=== PATIENT | male | born 1940 | race African-American/Black ===

== ENCOUNTER 2017-10-10 10:00 | Inpatient (IN) ==
[2017-10-10] MEDS ORDERED: SODIUM CHLORIDE 0.9% 1,000 ML IV STA (11:13)
[2017-10-10 13:26] LABS: Basophils % 0.9 % (0.0-0.8); Eosinophils # 0.5 10*3/uL (0.0-0.87); Eosinophils % 14.9 % (0.00-10.9); Hematocrit 44.3 VOL% (42.0-52.0); Hemoglobin 13.7 GM/DL (14.0-18.0); Immature Granulocytes % 0.9 %; Immature Granulocytes Absolute 0.03 #; Lymphocytes % 32.3 % (21.2-54.2); Mean Corpuscular HGB Conc 30.9 GM/DL (32-36); Mean Corpuscular Hemoglobin 26 PG (27-34); Mean Platelet Volume 11.9 FL (9.6-12.0); Monocytes # 0.5 10*3/uL (0.11-0.8); Monocytes % 17.1 % (1.7-12.7); Neutrophils # 1.1 10*3/uL (1.4-7.4); Neutrophils % 33.9 % (38.7-73.9); Platelet Count 99 T/CUMM (130-400); Red Blood Count 5.21 MC/CUMM (3.8-5.5); Red Cell Distribution Width 14.8 % (9.3-17.3); White Blood Count 3.2 T/CUMM (4-12)
[2017-10-10 13:52] LABS: Albumin 3.4 G/DL (3.4-5.0); Bilirubin,Total 0.4 MG/DL (0.2-1.0); Calcium 8.3 MG/DL (8.5-10.1); Osmolality,Calculated 280.3 MOS/KG (273-304); Potassium 4.3 MMOL/L (3.5-5.1); Total Protein 7.1 G/DL (6.4-8.3)
[2017-10-10] MEDS ORDERED: LORazepam 2 MG/1 ML VIAL IV PRN (15:11)
[2017-10-10] MEDS ORDERED: MECLIZINE 25 MG TABLET PO PRN (15:11)
[2017-10-10] MEDS ORDERED: ONDANSETRON 4 MG/2 ML VIAL IV PRN (15:11)
[2017-10-10] MEDS: SODIUM CHLORIDE 0.9% 1,000 ML IV SCH (15:23)
[2017-10-10 15:32] LABS: Band Neutrophils 1 % (0-10); Eosinophils 10 % (0-10); Lymphocytes 33 % (20-55); Metamyelocytes 1 %; Segmented Neutrophils 49 % (50-85); Total Cells Counted 100
[2017-10-10 15:33] LABS: Platelet Estimate Decreased
[2017-10-10] MEDS: LEVOFLOXACIN INJ 500 MG in PREMIX 1 EACH IV SCH (18:40)
[2017-10-10] MEDS: methylPREDNISolone SOD SUC 125 MG/2 ML VIAL IV SCH ×2 (18:40→23:50)
[2017-10-10] MEDS: DOCUSATE SODIUM 100 MG CAPSULE PO SCH (21:00)
[2017-10-11] MEDS: SODIUM CHLORIDE 0.9% 1,000 ML IV SCH (00:32)
[2017-10-11] MEDS: methylPREDNISolone SOD SUC 125 MG/2 ML VIAL IV SCH ×3 (06:09→17:12)
[2017-10-11] MEDS: POTASSIUM CITRATE 10 MEQ TABLET PO SCH ×2 (08:34→21:10)
[2017-10-11] MEDS: CARVEDILOL 3.125 MG TABLET PO SCH ×2 (08:34→17:12)
[2017-10-11] MEDS: CHLORTHALIDONE 25 MG TABLET PO SCH (08:35)
[2017-10-11] MEDS: ASPIRIN EC 81 MG TABLET PO SCH ×2 (08:35→21:11)
[2017-10-11] MEDS: PANTOPRAZOLE 40 MG TABLET PO SCH ×2 (08:35→21:11)
[2017-10-11] MEDS ORDERED: PANTOPRAZOLE 40 MG TABLET PO SCH (09:00)
[2017-10-11] MEDS: BRIMONIDINE/TIMOLOL OPH SOLN 5 ML BOTTLE BOTH EYES SCH ×2 (11:26→21:13)
[2017-10-11] MEDS: DOCUSATE SODIUM 100 MG CAPSULE PO SCH ×2 (11:26→21:11)
[2017-10-11] MEDS: ACETAMINOPHEN 325 MG TABLET PO PRN (21:10)
[2017-10-11] MEDS: LEVOFLOXACIN INJ 500 MG in PREMIX 1 EACH IV SCH (21:11)
[2017-10-12] MEDS: methylPREDNISolone SOD SUC 125 MG/2 ML VIAL IV SCH ×5 (00:34→23:34)
[2017-10-12 08:16] LABS: Basophils % 0.1 % (0.0-0.8); Hematocrit 46.5 VOL% (42.0-52.0); Hemoglobin 14.9 GM/DL (14.0-18.0); Immature Granulocytes % 0.6 %; Immature Granulocytes Absolute 0.05 #; Lymphocytes # 0.6 10*3/uL (1.4-4.0); Lymphocytes % 7.7 % (21.2-54.2); Mean Corpuscular Hemoglobin 26 PG (27-34); Mean Platelet Volume 11.6 FL (9.6-12.0); Monocytes # 0.3 10*3/uL (0.11-0.8); Monocytes % 4.1 % (1.7-12.7); Neutrophils # 6.8 10*3/uL (1.4-7.4); Neutrophils % 87.5 % (38.7-73.9); Platelet Count 118 T/CUMM (130-400); Red Blood Count 5.74 MC/CUMM (3.8-5.5); Red Cell Distribution Width 14.4 % (9.3-17.3); White Blood Count 7.8 T/CUMM (4-12)
[2017-10-12] MEDS: PANTOPRAZOLE 40 MG TABLET PO SCH ×2 (09:09→20:23)
[2017-10-12] MEDS: ASPIRIN EC 81 MG TABLET PO SCH ×2 (09:09→20:23)
[2017-10-12] MEDS: CARVEDILOL 3.125 MG TABLET PO SCH ×2 (09:09→16:51)
[2017-10-12] MEDS: CHLORTHALIDONE 25 MG TABLET PO SCH (09:09)
[2017-10-12] MEDS: DOCUSATE SODIUM 100 MG CAPSULE PO SCH ×2 (09:09→20:22)
[2017-10-12] MEDS: POTASSIUM CITRATE 10 MEQ TABLET PO SCH ×2 (09:09→20:23)
[2017-10-12] MEDS: BRIMONIDINE/TIMOLOL OPH SOLN 5 ML BOTTLE BOTH EYES SCH ×2 (09:10→20:23)
[2017-10-12] MEDS ORDERED: PHENOL 1.4% THROAT SPRAY 177 ML BOTTLE PO PRN (12:56)
[2017-10-12] MEDS: LEVOFLOXACIN INJ 500 MG in PREMIX 1 EACH IV SCH (20:26)
[2017-10-13] MEDS: methylPREDNISolone SOD SUC 125 MG/2 ML VIAL IV SCH ×3 (05:42→17:56)
[2017-10-13] MEDS: DOCUSATE SODIUM 100 MG CAPSULE PO SCH ×2 (08:26→20:41)
[2017-10-13] MEDS: ASPIRIN EC 81 MG TABLET PO SCH ×2 (08:26→20:41)
[2017-10-13] MEDS: CARVEDILOL 3.125 MG TABLET PO SCH ×2 (08:26→17:56)
[2017-10-13] MEDS: PANTOPRAZOLE 40 MG TABLET PO SCH ×2 (08:26→20:41)
[2017-10-13] MEDS: CHLORTHALIDONE 25 MG TABLET PO SCH (08:26)
[2017-10-13] MEDS: BRIMONIDINE/TIMOLOL OPH SOLN 5 ML BOTTLE BOTH EYES SCH ×2 (08:26→20:40)
[2017-10-13] MEDS: POTASSIUM CITRATE 10 MEQ TABLET PO SCH ×2 (08:26→20:41)
[2017-10-13] MEDS: ACETAMINOPHEN 325 MG TABLET PO PRN (10:11)
[2017-10-13] MEDS: LEVOFLOXACIN INJ 500 MG in PREMIX 1 EACH IV SCH (21:38)
[2017-10-14] MEDS: methylPREDNISolone SOD SUC 125 MG/2 ML VIAL IV SCH ×2 (00:26→06:02)
[2017-10-14 08:15] VITALS: BP 154/77
== END 2017-10-14 10:59 | disposition home health service (06) | DRG 153 ==
LOC: N.EDINP 10:00 → N.ED 10:00 → N.EDINP 14:58 → N.2E 15:09
PROVIDERS: ADMIT Family Medicine; ATTEND Family Medicine

== ENCOUNTER 2018-02-01 10:52 | Observation (INO) ==
[2018-02-01] MEDS ORDERED: ASPIRIN 325 MG TABLET PO STA (11:29)
[2018-02-01] MEDS ORDERED: FUROSEMIDE 40 MG/4 ML VIAL IV STA (11:34)
[2018-02-01] MEDS ORDERED: ALBUTEROL/IPRATROPIUM 3 ML NEB RESP TX STA (11:34)
[2018-02-01] MEDS ORDERED: ONDANSETRON 4 MG/2 ML VIAL IV STA (11:34)
[2018-02-01] MEDS ORDERED: methylPREDNISolone SOD SUC 125 MG/2 ML VIAL IV STA (11:34)
[2018-02-01] MEDS ORDERED: MORPHINE 4 MG/1 ML VIAL IV STA (11:34)
[2018-02-01] MEDS ORDERED: NITROGLYCERIN 2% OINT 1 INCH/GM PACK TOP STA (11:34)
[2018-02-01 12:01] LABS: Basophils # 0.1 10*3/uL (0.0-0.2); Eosinophils # 0.4 10*3/uL (0.0-0.87); Eosinophils % 5.5 % (0.00-10.9); Hemoglobin 14.3 GM/DL (14.0-18.0); Immature Granulocytes % 0.6 %; Immature Granulocytes Absolute 0.04 #; Lymphocytes # 1.4 10*3/uL (1.4-4.0); Lymphocytes % 19.6 % (21.2-54.2); Mean Corpuscular HGB Conc 31.1 GM/DL (32-36); Mean Corpuscular Hemoglobin 26 PG (27-34); Mean Corpuscular Volume 83.3 FL (87-102); Mean Platelet Volume 10.3 FL (9.6-12.0); Monocytes # 0.9 10*3/uL (0.11-0.8); Monocytes % 12.3 % (1.7-12.7); Neutrophils # 4.4 10*3/uL (1.4-7.4); Platelet Count 122 T/CUMM (130-400); Red Blood Count 5.52 MC/CUMM (3.8-5.5); Red Cell Distribution Width 14.5 % (9.3-17.3); White Blood Count 7.1 T/CUMM (4-12)
[2018-02-01 12:18] LABS: PT Patient Result 10.1 SECS
[2018-02-01 12:20] LABS: Albumin 3.7 G/DL (3.4-5.0); Bilirubin,Total 0.5 MG/DL (0.2-1.0); Calcium 9.1 MG/DL (8.5-10.1); Osmolality,Calculated 278.4 MOS/KG (273-304); Potassium 2.9 MMOL/L (3.5-5.1); Total Protein 7.5 G/DL (6.4-8.3)
[2018-02-01] MEDS ORDERED: POTASSIUM CHLORIDE 20 MEQ TABLET PO STA (12:37)
[2018-02-01 13:15] LABS: Apearance,Urine CLEAR (Clear); Bilirubin,Urine Negative (Negative); Blood, Urine Negative (Negative); Glucose,Urine (UA) Negative (Negative); Ketones,Urine Negative (Negative); Mucus,Urine Occasional /LPF (Occasional); Nitrite,Urine Negative (Negative); Protein,Urine Negative; RBC,Urine 2 /HPF (0-4); Squamous Epithelial Cell,Urine Occasional /HPF (0-10); Urine Color Yellow (Yellow); Urine Specific Gravity 1.011 (1.001-1.035); WBC,Urine 27 /HPF (0-6)
[2018-02-01] MEDS ORDERED: cefTRIAXone 1,000 MG in SODIUM CHLORIDE 0.9% 100 ML IV STA (13:35)
[2018-02-01] MEDS ORDERED: ALBUTEROL/IPRATROPIUM 3 ML NEB RESP TX PRN (17:28)
[2018-02-01] MEDS ORDERED: ONDANSETRON 4 MG/2 ML VIAL IV PRN (17:28)
[2018-02-01] MEDS ORDERED: MORPHINE 4 MG/1 ML VIAL IV PRN (17:28)
[2018-02-01] MEDS ORDERED: ACETAMINOPHEN 325 MG TABLET PO PRN (17:28)
[2018-02-01] MEDS ORDERED: MECLIZINE 25 MG TABLET PO PRN (17:28)
[2018-02-01] MEDS: SODIUM CHLORIDE 0.9% 1,000 ML IV SCH (18:08)
[2018-02-01] MEDS: ENOXAPARIN 40 MG/0.4 ML SYRINGE SUBCUT SCH (18:09)
[2018-02-01] MEDS: NITROGLYCERIN 2% OINT 1 INCH/GM PACK TOP SCH ×2 (18:09→23:35)
[2018-02-01] MEDS ORDERED: NON-FORMULARY MEDICATION (Omeprazole [Prilosec] 20 MG) PO SCH (21:00)
[2018-02-01] MEDS: ASPIRIN EC 81 MG TABLET PO SCH (21:38)
[2018-02-01] MEDS: DOCUSATE SODIUM 100 MG CAPSULE PO SCH (21:38)
[2018-02-01] MEDS: CARVEDILOL 3.125 MG TABLET PO SCH (21:39)
[2018-02-01] MEDS: LATANOPROST 0.005% OPH SOLN 2.5 ML BOTTLE BOTH EYES SCH (21:40)
[2018-02-01] MEDS: POTASSIUM CITRATE 10 MEQ TABLET PO SCH (22:42)
[2018-02-02 05:25] LABS: Basophils % 0.2 % (0.0-0.8); Hematocrit 43.1 VOL% (42.0-52.0); Hemoglobin 13.5 GM/DL (14.0-18.0); Immature Granulocytes % 0.9 %; Immature Granulocytes Absolute 0.06 #; Lymphocytes # 0.6 10*3/uL (1.4-4.0); Lymphocytes % 9.2 % (21.2-54.2); Mean Corpuscular HGB Conc 31.3 GM/DL (32-36); Mean Corpuscular Hemoglobin 26 PG (27-34); Monocytes # 0.4 10*3/uL (0.11-0.8); Monocytes % 5.8 % (1.7-12.7); Neutrophils # 5.5 10*3/uL (1.4-7.4); Neutrophils % 83.9 % (38.7-73.9); Platelet Count 115 T/CUMM (130-400); Red Blood Count 5.13 MC/CUMM (3.8-5.5); Red Cell Distribution Width 14.2 % (9.3-17.3); White Blood Count 6.5 T/CUMM (4-12)
[2018-02-02 05:51] LABS: Eosinophils 5 % (0-10); Lymphocytes 9 % (20-55); Segmented Neutrophils 83 % (50-85); Total Cells Counted 100
[2018-02-02 05:53] LABS: Hypochromasia Slight; Spherocytes Slight
[2018-02-02 05:54] LABS: Elliptocytes Few
[2018-02-02 05:56] LABS: Platelet Estimate Decreased
[2018-02-02 08:09] LABS: Alanine Aminotransferase 14 U/L (16-61); Albumin 3.2 G/DL (3.4-5.0); Alkaline Phosphatase 73 U/L (45-117); Aspartate Amino Transferase 12 U/L (0-37); Bilirubin,Total < 0.39 MG/DL (0.2-1.0); Blood Urea Nitrogen 25 MG/DL (7-18); Calcium 8.4 MG/DL (8.5-10.1); Cholesterol 159 MG/DL (50-200); Glucose 186 MG/DL (74-106); HDL Cholesterol 68 MG/DL (40-60); Osmolality,Calculated 283.7 MOS/KG (273-304); Potassium 3.6 MMOL/L (3.5-5.1); Risk Ratio 2.34; Sodium 138 MMOL/L (136-145); Total Protein 6.7 G/DL (6.4-8.3); Triglycerides 122 MG/DL (2-150); VLDL CHOLESTEROL 24.4 MG/DL
[2018-02-02] MEDS: TAMSULOSIN 0.4 MG CAPSULE PO SCH (09:42)
[2018-02-02] MEDS: CHLORTHALIDONE 25 MG TABLET PO SCH (09:42)
[2018-02-02] MEDS: NITROGLYCERIN 2% OINT 1 INCH/GM PACK TOP SCH ×3 (09:43→18:37)
[2018-02-02] MEDS: ASPIRIN EC 81 MG TABLET PO SCH ×2 (09:43→22:13)
[2018-02-02] MEDS: cefTRIAXone 1,000 MG in SYRINGE 1 EACH IV SCH (09:43)
[2018-02-02] MEDS: DOCUSATE SODIUM 100 MG CAPSULE PO SCH ×2 (09:43→22:13)
[2018-02-02] MEDS: ROSUVASTATIN 20 MG TABLET PO SCH (09:43)
[2018-02-02] MEDS: PANTOPRAZOLE 40 MG TABLET PO SCH (09:43)
[2018-02-02] MEDS: CARVEDILOL 3.125 MG TABLET PO SCH ×2 (09:43→22:12)
[2018-02-02] MEDS: BRIMONIDINE/TIMOLOL OPH SOLN 5 ML BOTTLE BOTH EYES SCH ×2 (09:43→22:13)
[2018-02-02] MEDS: SODIUM CHLORIDE 0.9% 1,000 ML IV SCH (09:44)
[2018-02-02] MEDS: POTASSIUM CITRATE 10 MEQ TABLET PO SCH ×2 (09:49→22:12)
[2018-02-02] MEDS: ENOXAPARIN 40 MG/0.4 ML SYRINGE SUBCUT SCH (18:36)
[2018-02-02] MEDS: LATANOPROST 0.005% OPH SOLN 2.5 ML BOTTLE BOTH EYES SCH (22:12)
[2018-02-03] MEDS: SODIUM CHLORIDE 0.9% 1,000 ML IV SCH (00:21)
[2018-02-03] MEDS: NITROGLYCERIN 2% OINT 1 INCH/GM PACK TOP SCH ×3 (00:42→12:40)
[2018-02-03] MEDS: ROSUVASTATIN 20 MG TABLET PO SCH (09:27)
[2018-02-03] MEDS: CARVEDILOL 3.125 MG TABLET PO SCH (09:27)
[2018-02-03] MEDS: ASPIRIN EC 81 MG TABLET PO SCH (09:27)
[2018-02-03] MEDS: BRIMONIDINE/TIMOLOL OPH SOLN 5 ML BOTTLE BOTH EYES SCH (09:27)
[2018-02-03] MEDS: TAMSULOSIN 0.4 MG CAPSULE PO SCH (09:28)
[2018-02-03] MEDS: CHLORTHALIDONE 25 MG TABLET PO SCH (09:28)
[2018-02-03] MEDS: PANTOPRAZOLE 40 MG TABLET PO SCH (09:28)
[2018-02-03] MEDS: POTASSIUM CITRATE 10 MEQ TABLET PO SCH (09:32)
[2018-02-03] MEDS: DOCUSATE SODIUM 100 MG CAPSULE PO SCH (09:35)
[2018-02-03] MEDS: cefTRIAXone 1,000 MG in SYRINGE 1 EACH IV SCH (09:35)
[2018-02-03 12:02] VITALS: BP 140/70
== END 2018-02-03 15:17 | disposition home or self-care (01) ==
LOC: N.EDINP 10:52 → N.ED 10:52 → N.TELES 16:35
PROVIDERS: ADMIT Family Medicine; ATTEND Family Medicine

== ENCOUNTER 2019-08-25 11:17 | Inpatient (IN) ==
[2019-08-25 13:01] LABS: Basophils % 0.8 % (0.0-0.8); Eosinophils % 0.8 % (0.00-10.9); Hematocrit 51.9 VOL% (42.0-52.0); Immature Granulocytes % 1.3 %; Immature Granulocytes Absolute 0.05 #; Mean Corpuscular HGB Conc 30.8 GM/DL (32-36); Mean Corpuscular Volume 85.8 FL (87-102); Mean Platelet Volume 11.9 FL (9.6-12.0); Monocytes % 16.8 % (1.7-12.7); Neutrophils % 55.3 % (38.7-73.9); Red Blood Count 6.05 MC/CUMM (3.8-5.5); Red Cell Distribution Width 15.3 % (9.3-17.3); White Blood Count 3.9 T/CUMM (4-12)
[2019-08-25 13:03] LABS: Platelet Count 76 T/CUMM (130-400)
[2019-08-25 13:17] LABS: PT Patient Result 10.8 SECS (9.6-12.2)
[2019-08-25 13:22] LABS: Eosinophils 1 % (0-10); Lymphocytes 19 % (20-55); Microcytosis Slight; Polychromasia Few; Segmented Neutrophils 57 % (50-85); Stomatocytes 1+; Total Cells Counted 100
[2019-08-25 13:31] LABS: Blood Urea Nitrogen 17 MG/DL (7-18); Calcium 9.1 MG/DL (8.5-10.1); Estimated Glom Filtration Rate 53 ML/MIN; Glucose 101 MG/DL (74-106); Osmolality,Calculated 278.5 MOS/KG (273-304); Troponin I < 0.015 NG/ML (0.00-0.045)
[2019-08-25] MEDS ORDERED: ONDANSETRON 4 MG/2 ML VIAL IV PRN (17:19)
[2019-08-25] MEDS: SODIUM CHLORIDE 0.9% 1,000 ML IV SCH (17:53)
[2019-08-25] MEDS: carvediloL 3.125 MG TABLET PO SCH (20:27)
[2019-08-25] MEDS: POTASSIUM CITRATE 10 MEQ TABLET PO SCH (20:27)
[2019-08-25] MEDS: TAMSULOSIN 0.4 MG CAPSULE PO SCH (20:27)
[2019-08-25] MEDS: DOCUSATE SODIUM 100 MG CAPSULE PO SCH (20:27)
[2019-08-25] MEDS: LATANOPROST 0.005% OPH SOLN 2.5 ML BOTTLE BOTH EYES SCH (20:28)
[2019-08-25] MEDS: FLUTICASONE 50 MCG NASAL SPRAY 16 GM BOTTLE BOTH NARES SCH (20:28)
[2019-08-25] MEDS: BRIMONIDINE/TIMOLOL OPH SOLN 5 ML BOTTLE BOTH EYES SCH (20:28)
[2019-08-25] MEDS: IPRATROPIUM 0.06% NASAL SPRAY 15 ML BOTTLE BOTH NARES SCH (20:28)
[2019-08-26] MEDS: ACETAMINOPHEN 325 MG TABLET PO PRN ×4 (00:22→23:49)
[2019-08-26] MEDS: SODIUM CHLORIDE 0.9% 1,000 ML IV SCH ×3 (02:03→18:53)
[2019-08-26 06:09] LABS: Basophils % 0.4 % (0.0-0.8); Eosinophils % 0.2 % (0.00-10.9); Hematocrit 48.2 VOL% (42.0-52.0); Immature Granulocytes % 0.4 %; Immature Granulocytes Absolute 0.02 #; Lymphocytes # 1.2 10*3/uL (1.4-4.0); Mean Corpuscular HGB Conc 31.1 GM/DL (32-36); Mean Corpuscular Volume 85.3 FL (87-102); Mean Platelet Volume 11.6 FL (9.6-12.0); Monocytes % 14.4 % (1.7-12.7); Neutrophils % 61.6 % (38.7-73.9); Platelet Count 62 T/CUMM (130-400); Red Blood Count 5.65 MC/CUMM (3.8-5.5); Red Cell Distribution Width 14.9 % (9.3-17.3); White Blood Count 5.3 T/CUMM (4-12)
[2019-08-26 06:40] LABS: Calcium 8.3 MG/DL (8.5-10.1); Osmolality,Calculated 279.5 MOS/KG (273-304)
[2019-08-26 06:57] LABS: Hypochromasia Slight; Platelet Estimate Decreased
[2019-08-26] MEDS: TAMSULOSIN 0.4 MG CAPSULE PO SCH ×2 (08:16→21:05)
[2019-08-26] MEDS: ASPIRIN EC 81 MG TABLET PO SCH (08:16)
[2019-08-26] MEDS: carvediloL 3.125 MG TABLET PO SCH ×2 (08:16→21:05)
[2019-08-26] MEDS: DOCUSATE SODIUM 100 MG CAPSULE PO SCH ×2 (08:16→21:05)
[2019-08-26] MEDS: BRIMONIDINE/TIMOLOL OPH SOLN 5 ML BOTTLE BOTH EYES SCH ×2 (08:17→21:05)
[2019-08-26] MEDS: POTASSIUM CITRATE 10 MEQ TABLET PO SCH ×2 (08:17→21:05)
[2019-08-26] MEDS ORDERED: SODIUM CHLORIDE 0.9% 500 ML IV ONE (09:34)
[2019-08-26] MEDS: POTASSIUM CHLORIDE 20 MEQ TABLET PO PRN ×2 (10:15→14:21)
[2019-08-26] MEDS: cefTRIAXone 1,000 MG in SYRINGE 1 EACH IV SCH (10:52)
[2019-08-26] MEDS: FLUTICASONE 50 MCG NASAL SPRAY 16 GM BOTTLE BOTH NARES SCH (21:04)
[2019-08-26] MEDS: IPRATROPIUM 0.06% NASAL SPRAY 15 ML BOTTLE BOTH NARES SCH (21:04)
[2019-08-26] MEDS: LATANOPROST 0.005% OPH SOLN 2.5 ML BOTTLE BOTH EYES SCH (21:05)
[2019-08-27] MEDS: SODIUM CHLORIDE 0.9% 1,000 ML IV SCH ×3 (03:16→19:26)
[2019-08-27 08:41] LABS: Basophils % 0.3 % (0.0-0.8); Eosinophils % 0.3 % (0.00-10.9); Hematocrit 44.1 VOL% (42.0-52.0); Hemoglobin 13.4 GM/DL (14.0-18.0); Immature Granulocytes % 0.6 %; Immature Granulocytes Absolute 0.02 #; Lymphocytes # 1.1 10*3/uL (1.4-4.0); Lymphocytes % 29.2 % (21.2-54.2); Mean Corpuscular HGB Conc 30.4 GM/DL (32-36); Mean Corpuscular Volume 86.8 FL (87-102); Mean Platelet Volume 11.9 FL (9.6-12.0); Monocytes % 12.3 % (1.7-12.7); Neutrophils % 57.3 % (38.7-73.9); Red Blood Count 5.08 MC/CUMM (3.8-5.5); Red Cell Distribution Width 15.2 % (9.3-17.3)
[2019-08-27 08:42] LABS: Platelet Count 48 T/CUMM (130-400); White Blood Count 3.6 T/CUMM (4-12)
[2019-08-27 08:44] LABS: Hypochromasia 1+
[2019-08-27 08:45] LABS: Microcytosis 1+
[2019-08-27 08:47] LABS: Ovalocytes Few; Platelet Estimate Decreased
[2019-08-27 08:51] LABS: Calcium 7.6 MG/DL (8.5-10.1); Osmolality,Calculated 289.7 MOS/KG (273-304)
[2019-08-27 08:51] LABS: Troponin I 0.035 NG/ML (0.00-0.045)
[2019-08-27] MEDS: BRIMONIDINE/TIMOLOL OPH SOLN 5 ML BOTTLE BOTH EYES SCH ×2 (10:35→21:17)
[2019-08-27] MEDS: ASPIRIN EC 81 MG TABLET PO SCH (10:35)
[2019-08-27] MEDS: TAMSULOSIN 0.4 MG CAPSULE PO SCH ×2 (10:35→21:17)
[2019-08-27] MEDS: carvediloL 3.125 MG TABLET PO SCH ×2 (10:35→21:17)
[2019-08-27] MEDS: cefTRIAXone 1,000 MG in SYRINGE 1 EACH IV SCH (10:35)
[2019-08-27] MEDS: DOCUSATE SODIUM 100 MG CAPSULE PO SCH ×2 (10:35→21:17)
[2019-08-27] MEDS: POTASSIUM CITRATE 10 MEQ TABLET PO SCH ×2 (10:36→21:17)
[2019-08-27 14:26] LABS: Troponin I 0.023 NG/ML (0.00-0.045)
[2019-08-27] MEDS ORDERED: POTASSIUM CHLORIDE 20 MEQ TABLET PO ONE (16:12)
[2019-08-27 19:06] LABS: Apearance,Urine CLOUDY (Clear); Bilirubin,Urine Negative (Negative); Blood, Urine Moderate mg/dL (Negative); Glucose,Urine (UA) Negative (Negative); Ketones,Urine Negative (Negative); Mucus,Urine Occasional /LPF (Occasional); Nitrite,Urine Negative (Negative); Protein,Urine 30 MG/DL; RBC,Urine 4 /HPF (0-4); Squamous Epithelial Cell,Urine Occasional /HPF (0-10); Urine Color Yellow (Yellow); Urine Specific Gravity 1.015 (1.001-1.035); Urine Urobilinogen < 2.0 EU/DL (0.2-1.0); WBC,Urine 241 /HPF (0-6)
[2019-08-27] MEDS: LATANOPROST 0.005% OPH SOLN 2.5 ML BOTTLE BOTH EYES SCH (21:17)
[2019-08-27] MEDS: FLUTICASONE 50 MCG NASAL SPRAY 16 GM BOTTLE BOTH NARES SCH (21:18)
[2019-08-27] MEDS: IPRATROPIUM 0.06% NASAL SPRAY 15 ML BOTTLE BOTH NARES SCH (21:18)
[2019-08-28] MEDS: SODIUM CHLORIDE 0.9% 1,000 ML IV SCH ×3 (03:39→19:56)
[2019-08-28 05:31] LABS: Basophils % 0.4 % (0.0-0.8); Eosinophils % 1.5 % (0.00-10.9); Hematocrit 40.5 VOL% (42.0-52.0); Hemoglobin 12.4 GM/DL (14.0-18.0); Immature Granulocytes % 0.7 %; Immature Granulocytes Absolute 0.02 #; Lymphocytes # 1.3 10*3/uL (1.4-4.0); Lymphocytes % 47.8 % (21.2-54.2); Mean Corpuscular HGB Conc 30.6 GM/DL (32-36); Mean Corpuscular Volume 85.8 FL (87-102); Mean Platelet Volume 13.4 FL (9.6-12.0); Monocytes % 14.4 % (1.7-12.7); Neutrophils % 35.2 % (38.7-73.9); Red Blood Count 4.72 MC/CUMM (3.8-5.5); White Blood Count 2.7 T/CUMM (4-12)
[2019-08-28 05:41] LABS: Platelet Count 41 T/CUMM (130-400)
[2019-08-28 05:42] LABS: Calcium 7.4 MG/DL (8.5-10.1); Osmolality,Calculated 283.1 MOS/KG (273-304)
[2019-08-28 05:59] LABS: Eosinophils 4 % (0-10); Hypochromasia 1+; Lymphocytes 47 % (20-55); Microcytosis 1+; Ovalocytes Slight; Platelet Estimate Decreased; Segmented Neutrophils 39 % (50-85); Total Cells Counted 100
[2019-08-28] MEDS: POTASSIUM CITRATE 10 MEQ TABLET PO SCH ×2 (09:00→20:49)
[2019-08-28] MEDS: carvediloL 3.125 MG TABLET PO SCH ×2 (09:01→20:49)
[2019-08-28] MEDS: TAMSULOSIN 0.4 MG CAPSULE PO SCH ×2 (09:01→20:49)
[2019-08-28] MEDS: ACETAMINOPHEN 325 MG TABLET PO PRN (09:01)
[2019-08-28] MEDS: cefTRIAXone 1,000 MG in SYRINGE 1 EACH IV SCH (09:02)
[2019-08-28] MEDS: BRIMONIDINE/TIMOLOL OPH SOLN 5 ML BOTTLE BOTH EYES SCH ×2 (09:02→20:49)
[2019-08-28] MEDS: DOCUSATE SODIUM 100 MG CAPSULE PO SCH ×2 (09:02→20:49)
[2019-08-28 14:41] LABS: Alanine Aminotransferase 34 U/L (16-61); Alkaline Phosphatase 60 U/L (45-117); Aspartate Amino Transferase 52 U/L (0-37); Bilirubin,Direct < 0.100 MG/DL (0.0-0.20); Bilirubin,Indirect 0.6 MG/DL (0.0-1.0); Ferritin 118.1 ng/ml (26-388); Immunoglobulin A 211 MG/DL (70-400); Immunoglobulin G 1080 MG/DL (700-1600); Immunoglobulin M 108 MG/DL (40-230); Iron 52 UG/DL (65-175); Rheumatoid Factor < 15 IU/ML (<15); Total Protein 6.6 G/DL (6.4-8.3)
[2019-08-28 14:52] LABS: Folate 18.2 NG/ML (5.4-24.0); Vitamin B12 353 PG/ML (211-911)
[2019-08-28] MEDS: FLUTICASONE 50 MCG NASAL SPRAY 16 GM BOTTLE BOTH NARES SCH (20:48)
[2019-08-28] MEDS: IPRATROPIUM 0.06% NASAL SPRAY 15 ML BOTTLE BOTH NARES SCH (20:48)
[2019-08-28] MEDS: LATANOPROST 0.005% OPH SOLN 2.5 ML BOTTLE BOTH EYES SCH (20:50)
[2019-08-29] MEDS: SODIUM CHLORIDE 0.9% 1,000 ML IV SCH ×3 (04:30→21:12)
[2019-08-29 06:01] LABS: Basophils % 0.5 % (0.0-0.8); Eosinophils # 0.1 10*3/uL (0.0-0.87); Eosinophils % 4.9 % (0.00-10.9); Hematocrit 42.7 VOL% (42.0-52.0); Hemoglobin 13.2 GM/DL (14.0-18.0); Immature Granulocytes % 0.5 %; Immature Granulocytes Absolute 0.01 #; Lymphocytes # 1.2 10*3/uL (1.4-4.0); Lymphocytes % 56.1 % (21.2-54.2); Mean Corpuscular HGB Conc 30.9 GM/DL (32-36); Mean Corpuscular Volume 85.9 FL (87-102); Mean Platelet Volume 11.2 FL (9.6-12.0); Monocytes % 9.3 % (1.7-12.7); Neutrophils % 28.7 % (38.7-73.9); Platelet Count 49 T/CUMM (130-400); Red Blood Count 4.97 MC/CUMM (3.8-5.5); Red Cell Distribution Width 15.1 % (9.3-17.3); White Blood Count 2.1 T/CUMM (4-12)
[2019-08-29 06:16] LABS: Calcium 7.6 MG/DL (8.5-10.1)
[2019-08-29 06:31] LABS: Eosinophils 4 % (0-10); Lymphocytes 53 % (20-55); Platelet Estimate Decreased; Polychromasia Few; Segmented Neutrophils 33 % (50-85); Total Cells Counted 100
[2019-08-29] MEDS: carvediloL 3.125 MG TABLET PO SCH ×2 (09:02→21:12)
[2019-08-29] MEDS: DOCUSATE SODIUM 100 MG CAPSULE PO SCH ×2 (09:02→21:12)
[2019-08-29] MEDS: BRIMONIDINE/TIMOLOL OPH SOLN 5 ML BOTTLE BOTH EYES SCH ×2 (09:02→21:12)
[2019-08-29] MEDS: TAMSULOSIN 0.4 MG CAPSULE PO SCH ×2 (09:02→21:12)
[2019-08-29] MEDS: cefTRIAXone 1,000 MG in SYRINGE 1 EACH IV SCH (09:02)
[2019-08-29] MEDS: POTASSIUM CITRATE 10 MEQ TABLET PO SCH ×2 (09:02→21:13)
[2019-08-29 10:00] LABS: Immunoglobulin A (Chem) 211 MG/DL (70-400); Immunoglobulin G (Chem) 1080 MG/DL (700-1600); Immunoglobulin M (Chem) 108 MG/DL (40-230); Total Protein (Chem) 6.6 G/DL (6.4-8.3)
[2019-08-29 11:35] LABS: Albumin (SPE) Rel % 60.2 %; Alpha 1 (SPE) 0.2 G/DL (0.1-0.4); Alpha 2 (SPE) 0.7 G/DL (0.4-1.0); Alpha 2 (SPE) Rel % 11.2 %; Beta (SPE) 0.7 G/DL (0.5-1.1); Beta (SPE) Rel % 10.3 %; Gamma (SPE) Rel % 15.3 %
[2019-08-29 14:06] LABS: Basophils % 0.4 % (0.0-0.8); Eosinophils # 0.1 10*3/uL (0.0-0.87); Eosinophils % 3.6 % (0.00-10.9); Hematocrit 42.3 VOL% (42.0-52.0); Hemoglobin 13.1 GM/DL (14.0-18.0); Immature Granulocytes % 0.8 %; Immature Granulocytes Absolute 0.02 #; Lymphocytes # 1.3 10*3/uL (1.4-4.0); Lymphocytes % 50.6 % (21.2-54.2); Mean Corpuscular Volume 86.2 FL (87-102); Mean Platelet Volume 12.1 FL (9.6-12.0); Monocytes % 9.2 % (1.7-12.7); Neutrophils % 35.4 % (38.7-73.9); Platelet Count 66 T/CUMM (130-400); Red Blood Count 4.91 MC/CUMM (3.8-5.5); Red Cell Distribution Width 14.9 % (9.3-17.3); White Blood Count 2.5 T/CUMM (4-12)
[2019-08-29 14:37] LABS: Band Neutrophils 3 % (0-10); Eosinophils 3 % (0-10); Lymphocytes 50 % (20-55); Segmented Neutrophils 36 % (50-85); Total Cells Counted 100
[2019-08-29 14:38] LABS: Hypochromasia 1+; Microcytosis 1+; Platelet Estimate Decreased
[2019-08-29 14:39] LABS: Ovalocytes Few
[2019-08-29] MEDS: IPRATROPIUM 0.06% NASAL SPRAY 15 ML BOTTLE BOTH NARES SCH (21:12)
[2019-08-29] MEDS: FLUTICASONE 50 MCG NASAL SPRAY 16 GM BOTTLE BOTH NARES SCH (21:12)
[2019-08-29] MEDS: LATANOPROST 0.005% OPH SOLN 2.5 ML BOTTLE BOTH EYES SCH (21:12)
[2019-08-30 04:52] LABS: Basophils % 0.9 % (0.0-0.8); Eosinophils # 0.1 10*3/uL (0.0-0.87); Eosinophils % 3.8 % (0.00-10.9); Hematocrit 41.2 VOL% (42.0-52.0); Hemoglobin 12.7 GM/DL (14.0-18.0); Immature Granulocytes % 0.5 %; Immature Granulocytes Absolute 0.01 #; Lymphocytes # 1.1 10*3/uL (1.4-4.0); Lymphocytes % 52.8 % (21.2-54.2); Mean Corpuscular HGB Conc 30.8 GM/DL (32-36); Mean Corpuscular Volume 84.9 FL (87-102); Mean Platelet Volume 10.9 FL (9.6-12.0); Monocytes % 7.5 % (1.7-12.7); Neutrophils % 34.5 % (38.7-73.9); Platelet Count 57 T/CUMM (130-400); Red Blood Count 4.85 MC/CUMM (3.8-5.5); Red Cell Distribution Width 14.8 % (9.3-17.3); White Blood Count 2.1 T/CUMM (4-12)
[2019-08-30] MEDS: SODIUM CHLORIDE 0.9% 1,000 ML IV SCH ×2 (05:12→16:13)
[2019-08-30 05:17] LABS: Eosinophils 3 % (0-10); Hypochromasia Slight; Lymphocytes 52 % (20-55); Myelocytes 1 %; Platelet Estimate Decreased; Segmented Neutrophils 35 % (50-85); Total Cells Counted 100
[2019-08-30] MEDS ORDERED: HEPARIN 5,000 UNIT/1 ML VIAL ONE (07:58)
[2019-08-30] MEDS: TAMSULOSIN 0.4 MG CAPSULE PO SCH ×2 (10:31→21:00)
[2019-08-30] MEDS: carvediloL 3.125 MG TABLET PO SCH ×2 (10:31→20:59)
[2019-08-30] MEDS: DOCUSATE SODIUM 100 MG CAPSULE PO SCH ×2 (10:31→21:00)
[2019-08-30] MEDS: BRIMONIDINE/TIMOLOL OPH SOLN 5 ML BOTTLE BOTH EYES SCH ×2 (10:31→20:59)
[2019-08-30] MEDS: cefTRIAXone 1,000 MG in SYRINGE 1 EACH IV SCH (10:31)
[2019-08-30] MEDS: POTASSIUM CITRATE 10 MEQ TABLET PO SCH ×2 (10:31→21:00)
[2019-08-30] MEDS: LATANOPROST 0.005% OPH SOLN 2.5 ML BOTTLE BOTH EYES SCH (20:59)
[2019-08-30] MEDS: FLUTICASONE 50 MCG NASAL SPRAY 16 GM BOTTLE BOTH NARES SCH (21:01)
[2019-08-30] MEDS: IPRATROPIUM 0.06% NASAL SPRAY 15 ML BOTTLE BOTH NARES SCH (21:02)
[2019-08-31] MEDS: SODIUM CHLORIDE 0.9% 1,000 ML IV SCH (00:17)
[2019-08-31 06:25] LABS: Basophils % 0.3 % (0.0-0.8); Eosinophils # 0.1 10*3/uL (0.0-0.87); Eosinophils % 3.1 % (0.00-10.9); Hematocrit 40.2 VOL% (42.0-52.0); Hemoglobin 12.7 GM/DL (14.0-18.0); Immature Granulocytes Absolute 0.03 #; Lymphocytes # 1.2 10*3/uL (1.4-4.0); Lymphocytes % 41.1 % (21.2-54.2); Mean Corpuscular HGB Conc 31.6 GM/DL (32-36); Mean Corpuscular Volume 83.6 FL (87-102); Mean Platelet Volume 12.2 FL (9.6-12.0); Monocytes % 12.9 % (1.7-12.7); Neutrophils % 41.6 % (38.7-73.9); Platelet Count 76 T/CUMM (130-400); Red Blood Count 4.81 MC/CUMM (3.8-5.5); Red Cell Distribution Width 14.6 % (9.3-17.3); White Blood Count 2.9 T/CUMM (4-12)
[2019-08-31 06:35] LABS: Calcium 7.9 MG/DL (8.5-10.1); Osmolality,Calculated 281.1 MOS/KG (273-304)
[2019-08-31 06:49] LABS: Hypochromasia 1+; Ovalocytes Slight; Platelet Estimate Decreased
[2019-08-31 06:50] LABS: Microcytosis Slight
[2019-08-31 07:35] VITALS: BP 171/79
[2019-08-31] MEDS: BRIMONIDINE/TIMOLOL OPH SOLN 5 ML BOTTLE BOTH EYES SCH (08:12)
[2019-08-31] MEDS: TAMSULOSIN 0.4 MG CAPSULE PO SCH (08:12)
[2019-08-31] MEDS: carvediloL 3.125 MG TABLET PO SCH (08:12)
[2019-08-31] MEDS: POTASSIUM CITRATE 10 MEQ TABLET PO SCH (08:12)
[2019-08-31] MEDS: DOCUSATE SODIUM 100 MG CAPSULE PO SCH (08:12)
[2019-08-31] MEDS: cefTRIAXone 1,000 MG in SYRINGE 1 EACH IV SCH (08:13)
[2019-08-31 12:23] LABS: Immuno Free Light Chain Kappa 9.34 MG/DL (0.33-1.94); Immuno Free Light Chain Lambda 3.06 MG/DL (0.57-2.63); Immuno Free Light Chain Ratio 3.05 MG/DL (0.26-1.65)
== END 2019-08-31 10:09 | disposition home or self-care (01) | DRG 565 ==
LOC: N.ED 11:17 → OBSVTOIN 15:13 → INTOOBSV 15:13 → N.EDINP 15:13 → N.2E 15:33
PROVIDERS: ADMIT Family Medicine; ATTEND Family Medicine

== ENCOUNTER 2019-10-25 13:59 | Observation (INO) ==
[2019-10-25] MEDS ORDERED: ACETAMINOPHEN 325 MG TABLET PO PRN (14:06)
[2019-10-25] MEDS ORDERED: ONDANSETRON 4 MG/2 ML VIAL IV PRN (14:06)
[2019-10-25 16:21] LABS: Basophils % 0.7 % (0.0-0.8); Eosinophils # 0.1 10*3/uL (0.0-0.87); Eosinophils % 3.1 % (0.00-10.9); Hematocrit 47.1 VOL% (42.0-52.0); Hemoglobin 14.6 GM/DL (14.0-18.0); Immature Granulocytes % 0.7 %; Immature Granulocytes Absolute 0.02 #; Lymphocytes # 1.3 10*3/uL (1.4-4.0); Lymphocytes % 43.6 % (21.2-54.2); Mean Corpuscular Volume 86.3 FL (87-102); Monocytes % 13.1 % (1.7-12.7); Neutrophils % 38.8 % (38.7-73.9); Platelet Count 81 T/CUMM (130-400); Red Blood Count 5.46 MC/CUMM (3.8-5.5); Red Cell Distribution Width 14.4 % (9.3-17.3); White Blood Count 2.9 T/CUMM (4-12)
[2019-10-25 16:44] LABS: Albumin 3.9 G/DL (3.4-5.0); Bilirubin,Total 0.4 MG/DL (0.2-1.0); Calcium 8.5 MG/DL (8.5-10.1); Total Protein 8.1 G/DL (6.4-8.3)
[2019-10-25 18:32] LABS: Platelet Estimate Decreased
[2019-10-25] MEDS: SODIUM CHLORIDE 0.45% 1,000 ML IV SCH (18:51)
[2019-10-25] MEDS: ENOXAPARIN 30 MG/0.3 ML SYRINGE SUBCUT SCH (18:55)
[2019-10-25] MEDS: methylPREDNISolone SOD SUC 40 MG/1 ML VIAL IV SCH ×2 (19:00→22:38)
[2019-10-25] MEDS: LEVOFLOXACIN INJ 500 MG in PREMIX 1 EACH IV SCH (19:04)
[2019-10-25] MEDS: ALBUTEROL 2.5 MG/3 ML NEB RESP TX SCH (20:07)
[2019-10-25] MEDS: BRIMONIDINE TIMOLOL BOTH EYES SCH (22:35)
[2019-10-25] MEDS: POTASSIUM CITRATE 20 MEQ PO SCH (22:36)
[2019-10-25] MEDS: [UNRECOGNIZED DRUG - REMARK] BOTH NARES SCH (22:36)
[2019-10-25] MEDS: DOCUSATE SODIUM 100 MG CAPSULE PO SCH (22:37)
[2019-10-25] MEDS: LATANOPROST 0.005% OPH SOLN 2.5 ML BOTTLE BOTH EYES SCH (22:44)
[2019-10-26] MEDS: ALBUTEROL 2.5 MG/3 ML NEB RESP TX SCH ×4 (00:52→19:50)
[2019-10-26 05:17] LABS: Apearance,Urine CLEAR (Clear); Bilirubin,Urine Negative (Negative); Blood, Urine Small mg/dL (Negative); Glucose,Urine (UA) Negative (Negative); Ketones,Urine Negative (Negative); Nitrite,Urine Negative (Negative); Protein,Urine Negative; RBC,Urine 1 /HPF (0-4); Squamous Epithelial Cell,Urine Occasional /HPF (0-10); Urine Color Straw (Yellow); Urine Specific Gravity 1.009 (1.001-1.035); Urine Urobilinogen < 2.0 EU/DL (0.2-1.0); WBC,Urine 15 /HPF (0-6)
[2019-10-26] MEDS: methylPREDNISolone SOD SUC 40 MG/1 ML VIAL IV SCH ×3 (06:21→23:18)
[2019-10-26] MEDS: SODIUM CHLORIDE 0.45% 1,000 ML IV SCH ×2 (10:49→17:42)
[2019-10-26] MEDS: BRIMONIDINE TIMOLOL BOTH EYES SCH ×2 (10:50→20:42)
[2019-10-26] MEDS: POTASSIUM CITRATE 20 MEQ PO SCH ×2 (10:52→20:41)
[2019-10-26] MEDS: DOCUSATE SODIUM 100 MG CAPSULE PO SCH ×2 (10:52→20:42)
[2019-10-26] MEDS: PANTOPRAZOLE 40 MG TABLET PO SCH (10:53)
[2019-10-26] MEDS: ENOXAPARIN 30 MG/0.3 ML SYRINGE SUBCUT SCH (17:39)
[2019-10-26] MEDS: LEVOFLOXACIN INJ 500 MG in PREMIX 1 EACH IV SCH (17:40)
[2019-10-26] MEDS: [UNRECOGNIZED DRUG - REMARK] BOTH NARES SCH (20:41)
[2019-10-26] MEDS: LATANOPROST 0.005% OPH SOLN 2.5 ML BOTTLE BOTH EYES SCH (20:42)
[2019-10-27] MEDS: ALBUTEROL 2.5 MG/3 ML NEB RESP TX SCH ×4 (01:29→19:21)
[2019-10-27] MEDS: methylPREDNISolone SOD SUC 40 MG/1 ML VIAL IV SCH ×3 (07:13→23:12)
[2019-10-27] MEDS: BRIMONIDINE TIMOLOL BOTH EYES SCH ×2 (09:04→20:29)
[2019-10-27] MEDS: POTASSIUM CITRATE 20 MEQ PO SCH ×2 (09:05→20:30)
[2019-10-27] MEDS: PANTOPRAZOLE 40 MG TABLET PO SCH (09:05)
[2019-10-27] MEDS: DOCUSATE SODIUM 100 MG CAPSULE PO SCH ×2 (09:05→20:31)
[2019-10-27] MEDS: SODIUM CHLORIDE 0.45% 1,000 ML IV SCH ×2 (16:29→20:29)
[2019-10-27] MEDS: LEVOFLOXACIN INJ 500 MG in PREMIX 1 EACH IV SCH (16:30)
[2019-10-27] MEDS: ENOXAPARIN 30 MG/0.3 ML SYRINGE SUBCUT SCH (16:30)
[2019-10-27] MEDS: [UNRECOGNIZED DRUG - REMARK] BOTH NARES SCH (20:30)
[2019-10-27] MEDS: LATANOPROST 0.005% OPH SOLN 2.5 ML BOTTLE BOTH EYES SCH (20:34)
[2019-10-28] MEDS: ALBUTEROL 2.5 MG/3 ML NEB RESP TX SCH ×2 (00:18→07:39)
[2019-10-28] MEDS: methylPREDNISolone SOD SUC 40 MG/1 ML VIAL IV SCH (06:45)
[2019-10-28 08:39] VITALS: BP 119/69
[2019-10-28] MEDS: BRIMONIDINE TIMOLOL BOTH EYES SCH (10:04)
[2019-10-28] MEDS: POTASSIUM CITRATE 20 MEQ PO SCH (10:04)
[2019-10-28] MEDS: DOCUSATE SODIUM 100 MG CAPSULE PO SCH (10:05)
[2019-10-28] MEDS: PANTOPRAZOLE 40 MG TABLET PO SCH (10:06)
== END 2019-10-28 13:20 | disposition home or self-care (01) ==
LOC: N.2W → N.5E 10-27 06:22
PROVIDERS: ADMIT Family Medicine; ATTEND Family Medicine

== ENCOUNTER 2021-02-03 05:15 | Inpatient (IN) ==
[2021-02-03] MEDS ORDERED: KETAMINE 500 MG/10 ML VIAL ONE (06:21)
[2021-02-03] MEDS ORDERED: DEXMEDETOMIDINE 200 MCG/2 ML VIAL ONE (06:21)
[2021-02-03] MEDS ORDERED: GABAPENTIN 400 MG CAPSULE PO ONE (06:32)
[2021-02-03] MEDS ORDERED: FAMOTIDINE 20 MG TABLET PO ONE (06:32)
[2021-02-03] MEDS ORDERED: ACETAMINOPHEN 500 MG TABLET PO ONE (06:32)
[2021-02-03] MEDS ORDERED: BUPIVACAINE SPINAL 0.75% 2 ML AMP SPINAL ONE (06:43)
[2021-02-03] MEDS ORDERED: ceFAZolin 1,000 MG VIAL ONE (06:43)
[2021-02-03] MEDS ORDERED: VANCOMYCIN INJ 1,000 MG in SODIUM CHLORIDE 0.9% 250 ML IV ONE (07:00)
[2021-02-03] MEDS ORDERED: LACTATED RINGERS 1,000 ML IV SCH (07:30)
[2021-02-03] MEDS ORDERED: TRANEXAMIC ACID 1,000 MG/10 ML VIAL ONE (07:44)
[2021-02-03] MEDS ORDERED: LABETALOL 20 MG/4 ML SYRINGE IV ONE (07:44)
[2021-02-03] MEDS ORDERED: propofoL 200 MG/20 ML VIAL IV ONE (07:44)
[2021-02-03] MEDS ORDERED: BACITRACIN OINT 0.9 GM PACK TOP ONE (08:12)
[2021-02-03] MEDS ORDERED: LACTATED RINGERS 1,000 ML IV ONE (08:31)
[2021-02-03] MEDS ORDERED: MECLIZINE 25 MG TABLET PO PRN (08:54)
[2021-02-03] MEDS ORDERED: FLUTICASONE 50 MCG NASAL SPRAY 16 GM BOTTLE BOTH NARES PRN (08:54)
[2021-02-03] MEDS ORDERED: IPRATROPIUM 0.06% NASAL SPRAY 15 ML BOTTLE BOTH NARES PRN (08:54)
[2021-02-03] MEDS ORDERED: ALBUTEROL 2.5 MG/3 ML NEB RESP TX PRN (08:54)
[2021-02-03] MEDS ORDERED: diphenhydrAMINE CAP 25 MG CAPSULE PO PRN (08:55)
[2021-02-03] MEDS ORDERED: ONDANSETRON 4 MG/2 ML VIAL IV PRN (08:55)
[2021-02-03] MEDS ORDERED: MORPHINE 4 MG/1 ML VIAL IV PRN (08:55)
[2021-02-03] MEDS: KETOROLAC 15 MG/1 ML VIAL IV SCH ×3 (09:00→21:06)
[2021-02-03] MEDS: LACTATED RINGERS 1,000 ML IV SCH ×2 (09:40→16:39)
[2021-02-03] MEDS ORDERED: ROPIVACAINE 0.5% 30 ML VIAL ONE (09:58)
[2021-02-03] MEDS: ceFAZolin 2,000 MG in PREMIX 1 EACH IV SCH ×2 (12:58→21:04)
[2021-02-03] MEDS: LEVOFLOXACIN 500 MG TABLET PO SCH (13:52)
[2021-02-03] MEDS: TAMSULOSIN 0.4 MG CAPSULE PO SCH ×2 (13:52→21:05)
[2021-02-03] MEDS: BRIMONIDINE/TIMOLOL OPH SOLN 5 ML BOTTLE BOTH EYES SCH ×2 (13:53→21:06)
[2021-02-03] MEDS: POTASSIUM CITRATE 10 MEQ TABLET PO SCH (21:04)
[2021-02-03] MEDS: carvediloL 3.125 MG TABLET PO SCH (21:05)
[2021-02-03] MEDS: PANTOPRAZOLE 40 MG TABLET PO SCH (21:05)
[2021-02-03] MEDS: DOCUSATE SODIUM 100 MG CAPSULE PO SCH (21:05)
[2021-02-03] MEDS: LATANOPROST 0.005% OPH SOLN 2.5 ML BOTTLE BOTH EYES SCH (21:06)
[2021-02-04] MEDS: LACTATED RINGERS 1,000 ML IV SCH (02:29)
[2021-02-04] MEDS: KETOROLAC 15 MG/1 ML VIAL IV SCH (03:49)
[2021-02-04] MEDS ORDERED: FONDAPARINUX 2.5 MG/0.5 ML SYRINGE SUBCUT SCH (05:00)
[2021-02-04 06:01] LABS: Basophils % 0.2 % (0.0-0.8); Eosinophils % 0.4 % (0.00-10.9); Hematocrit 37.8 VOL% (42.0-52.0); Hemoglobin 11.7 GM/DL (14.0-18.0); Immature Granulocytes % 0.5 %; Immature Granulocytes Absolute 0.03 #; Lymphocytes # 0.7 10*3/uL (1.4-4.0); Lymphocytes % 11.6 % (21.2-54.2); Mean Corpuscular Volume 85.3 FL (87-102); Mean Platelet Volume 11.5 FL (9.6-12.0); Monocytes % 10.7 % (1.7-12.7); Neutrophils % 76.6 % (38.7-73.9); Platelet Count 71 T/CUMM (130-400); Red Blood Count 4.43 MC/CUMM (3.8-5.5); Red Cell Distribution Width 14.7 % (9.3-17.3); White Blood Count 5.7 T/CUMM (4-12)
[2021-02-04 06:17] LABS: Calcium 8.2 MG/DL (8.5-10.1); Osmolality,Calculated 279.7 MOS/KG (273-304); Potassium 4.3 MMOL/L (3.5-5.1)
[2021-02-04] MEDS ORDERED: ACETAMINOPHEN 325 MG TABLET PO PRN (08:56)
[2021-02-04] MEDS: PANTOPRAZOLE 40 MG TABLET PO SCH (09:47)
[2021-02-04] MEDS: ROSUVASTATIN 20 MG TABLET PO SCH (09:47)
[2021-02-04] MEDS: POTASSIUM CITRATE 10 MEQ TABLET PO SCH ×2 (09:47→22:07)
[2021-02-04] MEDS: BRIMONIDINE/TIMOLOL OPH SOLN 5 ML BOTTLE BOTH EYES SCH ×2 (09:47→22:02)
[2021-02-04] MEDS: TAMSULOSIN 0.4 MG CAPSULE PO SCH ×2 (09:47→22:03)
[2021-02-04] MEDS: carvediloL 3.125 MG TABLET PO SCH ×2 (09:47→22:03)
[2021-02-04] MEDS: LEVOFLOXACIN 500 MG TABLET PO SCH (09:47)
[2021-02-04] MEDS: DOCUSATE SODIUM 100 MG CAPSULE PO SCH ×2 (09:48→22:03)
[2021-02-04] MEDS ORDERED: VECURONIUM 10 MG VIAL IV ONE (18:53)
[2021-02-04] MEDS ORDERED: ETOMIDATE 20 MG/10 ML VIAL IV ONE (18:53)
[2021-02-04 19:29] LABS: Albumin 3.2 G/DL (3.4-5.0); Bilirubin,Total 0.7 MG/DL (0.2-1.0); Calcium 8.3 MG/DL (8.5-10.1); Osmolality,Calculated 284.7 MOS/KG (273-304); Potassium 3.7 MMOL/L (3.5-5.1); Total Protein 6.8 G/DL (6.4-8.2)
[2021-02-04 19:39] LABS: Basophils % 0.2 % (0.0-0.8); Eosinophils # 0.1 10*3/uL (0.0-0.87); Eosinophils % 0.7 % (0.00-10.9); Hematocrit 41.3 VOL% (42.0-52.0); Hemoglobin 12.3 GM/DL (14.0-18.0); Immature Granulocytes % 0.8 %; Immature Granulocytes Absolute 0.09 #; Lymphocytes # 2.4 10*3/uL (1.4-4.0); Lymphocytes % 22.7 % (21.2-54.2); Mean Corpuscular HGB Conc 29.8 GM/DL (32-36); Mean Corpuscular Volume 86.9 FL (87-102); Mean Platelet Volume 12.2 FL (9.6-12.0); Monocytes % 8.3 % (1.7-12.7); NRBC # 0.03 10*3/uL; Neutrophils % 67.3 % (38.7-73.9); Red Blood Count 4.75 MC/CUMM (3.8-5.5); Red Cell Distribution Width 14.8 % (9.3-17.3); White Blood Count 10.8 T/CUMM (4-12)
[2021-02-04 19:41] LABS: Platelet Count 86 T/CUMM (130-400)
[2021-02-04 19:50] LABS: Bilirubin,Urine Negative (Negative); Blood, Urine Moderate mg/dL (Negative); Glucose,Urine (UA) 50 mg/dL (Negative); Ketones,Urine Negative (Negative); Mucus,Urine Occasional /LPF (Occasional); Nitrite,Urine Negative (Negative); Protein,Urine 100 MG/DL; RBC,Urine 29 /HPF (0-4); Squamous Epithelial Cell,Urine Occasional /HPF (0-10); Urine Appearance Slightly Hazy (Clear); Urine Color Yellow (Yellow); Urine Specific Gravity 1.019 (1.001-1.035); Urine Urobilinogen < 2.0 EU/DL (0.2-1.0)
[2021-02-04 19:53] LABS: ABG Base Excess -0.1 MMOL/L (-2.5-2.5); ABG HCO3 24.4 MMOL/L (20-26); ABG Oxygen Saturation 99.3 % (95-100); ABG PCO2 44.4 MM HG (35-48); ABG PH 7.367 (7.35-7.45); ABG TCO2 22.9 MMOL/L (23-27)
[2021-02-04] MEDS ORDERED: MIDAZOLAM 100 MG in SODIUM CHLORIDE 0.9% 80 ML IV PRN (20:04)
[2021-02-04 20:07] LABS: INR 1.1; PT Patient Result 12.4 SECS (10.5-12.0); Partial Thromboplastin Time 28.6 SECS (23.9-33.8)
[2021-02-04] MEDS: MORPHINE 4 MG/1 ML VIAL IV PRN (20:23)
[2021-02-04] MEDS: LATANOPROST 0.005% OPH SOLN 2.5 ML BOTTLE BOTH EYES SCH (22:03)
[2021-02-04] MEDS: PANTOPRAZOLE 40 MG VIAL IV SCH (22:03)
[2021-02-04] MEDS ORDERED: HEPARIN DRIP 25,000 UNITS/500 ML PREMIX IV SCH (23:30)
[2021-02-05 04:43] LABS: ABG Base Excess 3.5 MMOL/L (-2.5-2.5); ABG HCO3 27.6 MMOL/L (20-26); ABG PCO2 34.3 MM HG (35-48); ABG PH 7.497 (7.35-7.45); ABG TCO2 23.6 MMOL/L (23-27); Allen Test Positive; Pt O2 Delivery Device Ventilator
[2021-02-05 07:00] LABS: Basophils % 0.4 % (0.0-0.8); Eosinophils # 0.2 10*3/uL (0.0-0.87); Eosinophils % 3.6 % (0.00-10.9); Hematocrit 32.1 VOL% (42.0-52.0); Hemoglobin 10.7 GM/DL (14.0-18.0); Immature Granulocytes % 2.8 %; Immature Granulocytes Absolute 0.19 #; Lymphocytes % 14.5 % (21.2-54.2); Mean Corpuscular HGB Conc 33.3 GM/DL (32-36); Mean Corpuscular Volume 80.7 FL (87-102); Mean Platelet Volume 11.8 FL (9.6-12.0); Monocytes % 8.6 % (1.7-12.7); Neutrophils % 70.1 % (38.7-73.9); Platelet Count 64 T/CUMM (130-400); Red Blood Count 3.98 MC/CUMM (3.8-5.5); Red Cell Distribution Width 14.7 % (9.3-17.3); White Blood Count 6.7 T/CUMM (4-12)
[2021-02-05 07:16] LABS: Albumin 2.7 G/DL (3.4-5.0); Bilirubin,Total 1.2 MG/DL (0.2-1.0); Calcium 8.1 MG/DL (8.5-10.1); High Sensitive Troponin I* 139.4 ng/L (0-78); Potassium 3.9 MMOL/L (3.5-5.1); Total Protein 6.1 G/DL (6.4-8.2)
[2021-02-05 07:21] LABS: Band Neutrophils 1 % (0-10); Eosinophils 4 % (0-10); Lymphocytes 15 % (20-55); Segmented Neutrophils 75 % (50-85); Total Cells Counted 100
[2021-02-05 07:22] LABS: Hypochromasia 1+; Microcytosis 1+; Ovalocytes Slight; Platelet Estimate Decreased
[2021-02-05] MEDS: LEVOFLOXACIN 500 MG TABLET PO SCH (09:50)
[2021-02-05] MEDS: PANTOPRAZOLE 40 MG VIAL IV SCH ×2 (09:50→21:13)
[2021-02-05] MEDS: TAMSULOSIN 0.4 MG CAPSULE PO SCH ×2 (09:50→21:12)
[2021-02-05] MEDS: BRIMONIDINE/TIMOLOL OPH SOLN 5 ML BOTTLE BOTH EYES SCH ×2 (09:50→21:13)
[2021-02-05] MEDS: APIXABAN 5 MG TABLET PO SCH ×2 (09:50→21:12)
[2021-02-05] MEDS: POTASSIUM CITRATE 10 MEQ TABLET PO SCH ×2 (09:50→21:12)
[2021-02-05] MEDS: carvediloL 3.125 MG TABLET PO SCH ×2 (09:50→21:13)
[2021-02-05] MEDS: ROSUVASTATIN 20 MG TABLET PO SCH (09:50)
[2021-02-05] MEDS: DOCUSATE SODIUM 100 MG CAPSULE PO SCH ×2 (09:50→21:12)
[2021-02-05] MEDS: MORPHINE 4 MG/1 ML VIAL IV PRN ×2 (10:26→14:23)
[2021-02-05] MEDS: LATANOPROST 0.005% OPH SOLN 2.5 ML BOTTLE BOTH EYES SCH (21:13)
[2021-02-06 05:04] LABS: Basophils % 0.4 % (0.0-0.8); Eosinophils # 0.1 10*3/uL (0.0-0.87); Eosinophils % 1.9 % (0.00-10.9); Hematocrit 32.5 VOL% (42.0-52.0); Hemoglobin 10.3 GM/DL (14.0-18.0); Immature Granulocytes % 2.1 %; Immature Granulocytes Absolute 0.15 #; Lymphocytes # 0.8 10*3/uL (1.4-4.0); Lymphocytes % 10.4 % (21.2-54.2); Mean Corpuscular HGB Conc 31.7 GM/DL (32-36); Mean Corpuscular Volume 83.5 FL (87-102); Mean Platelet Volume 12.3 FL (9.6-12.0); Monocytes % 10.2 % (1.7-12.7); Platelet Count 69 T/CUMM (130-400); Red Blood Count 3.89 MC/CUMM (3.8-5.5); Red Cell Distribution Width 14.9 % (9.3-17.3); White Blood Count 7.2 T/CUMM (4-12)
[2021-02-06 05:26] LABS: Hypochromasia 1+; Microcytosis 1+; Platelet Estimate Decreased
[2021-02-06 05:39] LABS: Calcium 8.4 MG/DL (8.5-10.1); Osmolality,Calculated 282.4 MOS/KG (273-304); Potassium 4.2 MMOL/L (3.5-5.1)
[2021-02-06] MEDS: POTASSIUM CITRATE 10 MEQ TABLET PO SCH ×2 (08:42→21:00)
[2021-02-06] MEDS: carvediloL 3.125 MG TABLET PO SCH ×2 (08:43→21:01)
[2021-02-06] MEDS: PANTOPRAZOLE 40 MG TABLET PO SCH ×2 (08:43→21:01)
[2021-02-06] MEDS: BRIMONIDINE/TIMOLOL OPH SOLN 5 ML BOTTLE BOTH EYES SCH ×2 (08:43→21:02)
[2021-02-06] MEDS: LEVOFLOXACIN 500 MG TABLET PO SCH (08:43)
[2021-02-06] MEDS: DOCUSATE SODIUM 100 MG CAPSULE PO SCH ×2 (08:43→21:00)
[2021-02-06] MEDS: ROSUVASTATIN 20 MG TABLET PO SCH (08:43)
[2021-02-06] MEDS: APIXABAN 5 MG TABLET PO SCH ×2 (08:43→21:01)
[2021-02-06] MEDS: TAMSULOSIN 0.4 MG CAPSULE PO SCH ×2 (08:43→21:00)
[2021-02-06] MEDS: MAGNESIUM HYDROXIDE SUSP 30 ML UDCUP PO PRN (08:44)
[2021-02-06] MEDS: ZALEPLON 5 MG CAPSULE PO PRN (21:01)
[2021-02-06] MEDS: LATANOPROST 0.005% OPH SOLN 2.5 ML BOTTLE BOTH EYES SCH (21:02)
[2021-02-07 07:04] LABS: Eosinophils # 0.1 10*3/uL (0.0-0.87); Eosinophils % 1.1 % (0.00-10.9); Hematocrit 29.4 VOL% (42.0-52.0); Immature Granulocytes % 1.1 %; Immature Granulocytes Absolute 0.06 #; Lymphocytes # 0.4 10*3/uL (1.4-4.0); Lymphocytes % 7.4 % (21.2-54.2); Mean Corpuscular HGB Conc 30.6 GM/DL (32-36); Mean Corpuscular Volume 86.2 FL (87-102); Mean Platelet Volume 12.1 FL (9.6-12.0); Monocytes % 10.2 % (1.7-12.7); Neutrophils % 80.2 % (38.7-73.9); Platelet Count 66 T/CUMM (130-400); Red Blood Count 3.41 MC/CUMM (3.8-5.5); Red Cell Distribution Width 14.9 % (9.3-17.3); White Blood Count 5.7 T/CUMM (4-12)
[2021-02-07 07:17] LABS: Calcium 8.5 MG/DL (8.5-10.1); Osmolality,Calculated 285.5 MOS/KG (273-304); Potassium 4.3 MMOL/L (3.5-5.1)
[2021-02-07 09:33] LABS: Band Neutrophils 1 % (0-10); Eosinophils 1 % (0-10); Hypochromasia 2+; Lymphocytes 6 % (20-55); Microcytosis Slight; Platelet Estimate Decreased; Reactive Lymphocytes Few; Segmented Neutrophils 86 % (50-85); Total Cells Counted 100
[2021-02-07] MEDS: ROSUVASTATIN 20 MG TABLET PO SCH (09:44)
[2021-02-07] MEDS: PANTOPRAZOLE 40 MG TABLET PO SCH ×2 (09:44→23:25)
[2021-02-07] MEDS: LEVOFLOXACIN 500 MG TABLET PO SCH (09:44)
[2021-02-07] MEDS: TAMSULOSIN 0.4 MG CAPSULE PO SCH ×2 (09:44→23:25)
[2021-02-07] MEDS: DOCUSATE SODIUM 100 MG CAPSULE PO SCH ×2 (09:44→23:25)
[2021-02-07] MEDS: POTASSIUM CITRATE 10 MEQ TABLET PO SCH ×2 (09:44→23:26)
[2021-02-07] MEDS: carvediloL 3.125 MG TABLET PO SCH ×2 (09:44→23:26)
[2021-02-07] MEDS: APIXABAN 5 MG TABLET PO SCH ×2 (09:44→23:24)
[2021-02-07] MEDS: BRIMONIDINE/TIMOLOL OPH SOLN 5 ML BOTTLE BOTH EYES SCH ×2 (14:11→23:26)
[2021-02-07] MEDS: ALBUTEROL/IPRATROPIUM 3 ML NEB RESP TX SCH ×2 (14:16→19:55)
[2021-02-07] MEDS: LATANOPROST 0.005% OPH SOLN 2.5 ML BOTTLE BOTH EYES SCH (23:26)
[2021-02-08] MEDS: ALBUTEROL/IPRATROPIUM 3 ML NEB RESP TX SCH ×4 (00:30→19:43)
[2021-02-08 06:40] LABS: Basophils % 0.4 % (0.0-0.8); Eosinophils # 0.2 10*3/uL (0.0-0.87); Eosinophils % 4.5 % (0.00-10.9); Hematocrit 28.3 VOL% (42.0-52.0); Hemoglobin 8.4 GM/DL (14.0-18.0); Immature Granulocytes % 2.4 %; Immature Granulocytes Absolute 0.12 #; Lymphocytes # 0.9 10*3/uL (1.4-4.0); Lymphocytes % 18.2 % (21.2-54.2); Mean Corpuscular HGB Conc 29.7 GM/DL (32-36); Mean Corpuscular Volume 87.3 FL (87-102); Mean Platelet Volume 11.7 FL (9.6-12.0); Monocytes % 12.7 % (1.7-12.7); NRBC # 0.02 10*3/uL; Neutrophils % 61.8 % (38.7-73.9); Platelet Count 80 T/CUMM (130-400); Red Blood Count 3.24 MC/CUMM (3.8-5.5); Red Cell Distribution Width 14.9 % (9.3-17.3); White Blood Count 5.1 T/CUMM (4-12)
[2021-02-08 07:12] LABS: Albumin 2.6 G/DL (3.4-5.0); Calcium 8.7 MG/DL (8.5-10.1); Osmolality,Calculated 288.3 MOS/KG (273-304); Potassium 4.4 MMOL/L (3.5-5.1); Total Protein 6.2 G/DL (6.4-8.2)
[2021-02-08] MEDS: LEVOFLOXACIN 500 MG TABLET PO SCH (10:49)
[2021-02-08] MEDS: ROSUVASTATIN 20 MG TABLET PO SCH (10:50)
[2021-02-08] MEDS: APIXABAN 5 MG TABLET PO SCH ×2 (10:50→21:28)
[2021-02-08] MEDS: DOCUSATE SODIUM 100 MG CAPSULE PO SCH ×2 (10:51→21:28)
[2021-02-08] MEDS: carvediloL 3.125 MG TABLET PO SCH ×2 (10:51→21:28)
[2021-02-08] MEDS: BRIMONIDINE/TIMOLOL OPH SOLN 5 ML BOTTLE BOTH EYES SCH ×2 (10:51→21:33)
[2021-02-08] MEDS: TAMSULOSIN 0.4 MG CAPSULE PO SCH ×2 (10:51→21:28)
[2021-02-08] MEDS: PANTOPRAZOLE 40 MG TABLET PO SCH ×2 (10:51→21:28)
[2021-02-08] MEDS: POTASSIUM CITRATE 10 MEQ TABLET PO SCH ×2 (11:55→21:31)
[2021-02-08] MEDS: MAGNESIUM HYDROXIDE SUSP 30 ML UDCUP PO PRN (19:08)
[2021-02-08] MEDS: ZALEPLON 5 MG CAPSULE PO PRN (21:27)
[2021-02-08] MEDS: LATANOPROST 0.005% OPH SOLN 2.5 ML BOTTLE BOTH EYES SCH (21:34)
[2021-02-09] MEDS: ALBUTEROL/IPRATROPIUM 3 ML NEB RESP TX SCH ×4 (00:57→19:33)
[2021-02-09 05:44] LABS: Basophils % 0.5 % (0.0-0.8); Eosinophils # 0.1 10*3/uL (0.0-0.87); Eosinophils % 2.1 % (0.00-10.9); Hemoglobin 8.5 GM/DL (14.0-18.0); Immature Granulocytes % 4.7 %; Immature Granulocytes Absolute 0.29 #; Lymphocytes # 0.7 10*3/uL (1.4-4.0); Lymphocytes % 11.8 % (21.2-54.2); Mean Corpuscular HGB Conc 31.5 GM/DL (32-36); Mean Corpuscular Volume 85.2 FL (87-102); Mean Platelet Volume 11.7 FL (9.6-12.0); Monocytes % 11.8 % (1.7-12.7); Neutrophils % 69.1 % (38.7-73.9); Platelet Count 100 T/CUMM (130-400); Red Blood Count 3.17 MC/CUMM (3.8-5.5); Red Cell Distribution Width 14.9 % (9.3-17.3); White Blood Count 6.1 T/CUMM (4-12)
[2021-02-09 06:18] LABS: Albumin 2.7 G/DL (3.4-5.0); Calcium 8.9 MG/DL (8.5-10.1); Osmolality,Calculated 285.5 MOS/KG (273-304); Potassium 4.9 MMOL/L (3.5-5.1); Total Protein 6.5 G/DL (6.4-8.2)
[2021-02-09] MEDS: DOCUSATE SODIUM 100 MG CAPSULE PO SCH ×2 (08:47→20:52)
[2021-02-09] MEDS: ROSUVASTATIN 20 MG TABLET PO SCH (08:47)
[2021-02-09] MEDS: MAGNESIUM HYDROXIDE SUSP 30 ML UDCUP PO PRN (08:48)
[2021-02-09] MEDS: carvediloL 3.125 MG TABLET PO SCH ×2 (08:48→20:53)
[2021-02-09] MEDS: APIXABAN 5 MG TABLET PO SCH ×2 (08:48→20:53)
[2021-02-09] MEDS: PANTOPRAZOLE 40 MG TABLET PO SCH ×2 (08:48→20:53)
[2021-02-09] MEDS: TAMSULOSIN 0.4 MG CAPSULE PO SCH ×2 (08:49→20:53)
[2021-02-09] MEDS: LEVOFLOXACIN 500 MG TABLET PO SCH (08:49)
[2021-02-09] MEDS: POTASSIUM CITRATE 10 MEQ TABLET PO SCH ×2 (08:52→20:54)
[2021-02-09] MEDS: BRIMONIDINE/TIMOLOL OPH SOLN 5 ML BOTTLE BOTH EYES SCH ×2 (08:52→20:54)
[2021-02-09] MEDS: LATANOPROST 0.005% OPH SOLN 2.5 ML BOTTLE BOTH EYES SCH (20:55)
[2021-02-10] MEDS: ALBUTEROL/IPRATROPIUM 3 ML NEB RESP TX SCH ×4 (00:36→19:20)
[2021-02-10] MEDS ORDERED: SODIUM CHLORIDE 0.9% 500 ML IV ONE (07:21)
[2021-02-10 09:23] LABS: Basophils % 0.2 % (0.0-0.8); Eosinophils # 0.1 10*3/uL (0.0-0.87); Hematocrit 26.8 VOL% (42.0-52.0); Hemoglobin 8.4 GM/DL (14.0-18.0); Immature Granulocytes % 5.3 %; Immature Granulocytes Absolute 0.32 #; Lymphocytes # 0.8 10*3/uL (1.4-4.0); Mean Corpuscular HGB Conc 31.3 GM/DL (32-36); Mean Corpuscular Volume 85.9 FL (87-102); Mean Platelet Volume 11.1 FL (9.6-12.0); Monocytes % 12.7 % (1.7-12.7); NRBC # 0.02 10*3/uL; Neutrophils % 66.8 % (38.7-73.9); Platelet Count 124 T/CUMM (130-400); Red Blood Count 3.12 MC/CUMM (3.8-5.5); Red Cell Distribution Width 15.2 % (9.3-17.3)
[2021-02-10] MEDS: DOCUSATE SODIUM 100 MG CAPSULE PO SCH ×2 (09:26→21:36)
[2021-02-10] MEDS: TAMSULOSIN 0.4 MG CAPSULE PO SCH ×2 (09:26→21:36)
[2021-02-10] MEDS: carvediloL 3.125 MG TABLET PO SCH ×2 (09:26→21:36)
[2021-02-10] MEDS: LEVOFLOXACIN 500 MG TABLET PO SCH (09:26)
[2021-02-10] MEDS: BRIMONIDINE/TIMOLOL OPH SOLN 5 ML BOTTLE BOTH EYES SCH (09:28)
[2021-02-10] MEDS: ROSUVASTATIN 20 MG TABLET PO SCH (09:29)
[2021-02-10] MEDS: PANTOPRAZOLE 40 MG TABLET PO SCH ×2 (09:29→21:37)
[2021-02-10] MEDS: APIXABAN 5 MG TABLET PO SCH ×2 (09:29→21:36)
[2021-02-10] MEDS: POTASSIUM CITRATE 10 MEQ TABLET PO SCH ×2 (09:29→21:37)
[2021-02-10 09:43] LABS: Eosinophils 1 % (0-10); Hypochromasia 1+; Lymphocytes 14 % (20-55); Microcytosis 1+; Ovalocytes Slight; Platelet Estimate Normal; Segmented Neutrophils 76 % (50-85); Total Cells Counted 100
[2021-02-10 09:48] LABS: Albumin 2.8 G/DL (3.4-5.0); Bilirubin,Total 1.2 MG/DL (0.2-1.0); Calcium 8.5 MG/DL (8.5-10.1); Osmolality,Calculated 281.7 MOS/KG (273-304); Potassium 4.3 MMOL/L (3.5-5.1); Total Protein 6.4 G/DL (6.4-8.2)
[2021-02-10] MEDS ORDERED: PHENOL 1.4% THROAT SPRAY 177 ML BOTTLE PO PRN (13:01)
[2021-02-11] MEDS: ALBUTEROL/IPRATROPIUM 3 ML NEB RESP TX SCH ×4 (01:09→19:30)
[2021-02-11] MEDS: LATANOPROST 0.005% OPH SOLN 2.5 ML BOTTLE BOTH EYES SCH ×2 (05:28→21:58)
[2021-02-11] MEDS: BRIMONIDINE/TIMOLOL OPH SOLN 5 ML BOTTLE BOTH EYES SCH ×3 (05:28→21:58)
[2021-02-11] MEDS: APIXABAN 5 MG TABLET PO SCH (09:33)
[2021-02-11] MEDS: ROSUVASTATIN 20 MG TABLET PO SCH (09:33)
[2021-02-11] MEDS: LEVOFLOXACIN 500 MG TABLET PO SCH (09:33)
[2021-02-11] MEDS: carvediloL 3.125 MG TABLET PO SCH (09:33)
[2021-02-11] MEDS: DOCUSATE SODIUM 100 MG CAPSULE PO SCH ×2 (10:32→23:25)
[2021-02-11] MEDS: PANTOPRAZOLE 40 MG TABLET PO SCH ×2 (10:32→23:25)
[2021-02-11] MEDS: TAMSULOSIN 0.4 MG CAPSULE PO SCH ×2 (10:32→23:25)
[2021-02-11] MEDS: POTASSIUM CITRATE 10 MEQ TABLET PO SCH (11:01)
[2021-02-11] MEDS: METOPROLOL TARTRATE 5 MG/5 ML VIAL IV SCH ×2 (14:27→18:07)
[2021-02-11] MEDS: DEXTROSE 5% NACL 0.9% 1,000 ML IV SCH (14:30)
[2021-02-11] MEDS: ENOXAPARIN 100 MG/ML SYRINGE SUBCUT SCH (21:57)
[2021-02-11] MEDS: POTASSIUM CHLORIDE 20 MEQ TABLET PO SCH (23:25)
[2021-02-12] MEDS: METOPROLOL TARTRATE 5 MG/5 ML VIAL IV SCH ×4 (01:59→17:59)
[2021-02-12] MEDS: ALBUTEROL/IPRATROPIUM 3 ML NEB RESP TX SCH ×4 (02:37→19:10)
[2021-02-12] MEDS: DEXTROSE 5% NACL 0.9% 1,000 ML IV SCH ×2 (02:38→15:54)
[2021-02-12] MEDS: LEVOFLOXACIN 500 MG TABLET PO SCH (09:52)
[2021-02-12] MEDS: BRIMONIDINE/TIMOLOL OPH SOLN 5 ML BOTTLE BOTH EYES SCH ×2 (09:52→22:22)
[2021-02-12] MEDS: ENOXAPARIN 100 MG/ML SYRINGE SUBCUT SCH ×2 (09:52→22:14)
[2021-02-12] MEDS: ROSUVASTATIN 20 MG TABLET PO SCH (09:52)
[2021-02-12] MEDS ORDERED: POTASSIUM CHLORIDE 20 MEQ/15 ML UDCUP PO SCH (10:00)
[2021-02-12] MEDS: TAMSULOSIN 0.4 MG CAPSULE PO SCH ×2 (10:05→22:14)
[2021-02-12] MEDS: PANTOPRAZOLE 40 MG TABLET PO SCH (10:46)
[2021-02-12] MEDS: DOCUSATE SODIUM 100 MG CAPSULE PO SCH (10:46)
[2021-02-12] MEDS: POTASSIUM CHLORIDE 20 MEQ TABLET PO SCH (10:46)
[2021-02-12] MEDS: DOCUSATE SODIUM 100 MG/10 ML UDCUP PER TUBE SCH ×2 (11:04→22:14)
[2021-02-12] MEDS: POTASSIUM CHLORIDE 20 MEQ/15 ML UDCUP PO SCH ×2 (11:04→22:14)
[2021-02-12] MEDS: OMEPRAZOLE ODT 20 MG TABLET PER TUBE SCH ×2 (11:04→22:13)
[2021-02-12] MEDS: LATANOPROST 0.005% OPH SOLN 2.5 ML BOTTLE BOTH EYES SCH (22:22)
[2021-02-13] MEDS: ALBUTEROL/IPRATROPIUM 3 ML NEB RESP TX SCH ×4 (01:02→19:16)
[2021-02-13] MEDS: METOPROLOL TARTRATE 5 MG/5 ML VIAL IV SCH ×4 (01:13→17:33)
[2021-02-13] MEDS: DEXTROSE 5% NACL 0.9% 1,000 ML IV SCH ×3 (01:43→18:48)
[2021-02-13 06:49] LABS: Albumin 2.4 G/DL (3.4-5.0); Bilirubin,Total 0.9 MG/DL (0.2-1.0); Calcium 8.1 MG/DL (8.5-10.1)
[2021-02-13 06:54] LABS: Basophils % 0.3 % (0.0-0.8); Eosinophils # 0.2 10*3/uL (0.0-0.87); Eosinophils % 2.6 % (0.00-10.9); Hematocrit 28.2 VOL% (42.0-52.0); Hemoglobin 8.1 GM/DL (14.0-18.0); Immature Granulocytes % 5.8 %; Lymphocytes # 0.9 10*3/uL (1.4-4.0); Lymphocytes % 13.5 % (21.2-54.2); Mean Corpuscular HGB Conc 28.7 GM/DL (32-36); Mean Corpuscular Volume 91.6 FL (87-102); Mean Platelet Volume 11.1 FL (9.6-12.0); Monocytes % 8.6 % (1.7-12.7); Neutrophils % 69.2 % (38.7-73.9); Osmolality,Calculated 294.4 MOS/KG (273-304); Platelet Count 164 T/CUMM (130-400); Potassium 3.7 MMOL/L (3.5-5.1); Red Blood Count 3.08 MC/CUMM (3.8-5.5); Red Cell Distribution Width 16.3 % (9.3-17.3); White Blood Count 6.9 T/CUMM (4-12)
[2021-02-13 07:19] LABS: Atypical Lymphocytes Few; Eosinophils 3 % (0-10); Giant Platelets Few; Lymphocytes 14 % (20-55); Metamyelocytes 1 %; Platelet Estimate Adequate; Polychromasia Slight; Segmented Neutrophils 76 % (50-85); Total Cells Counted 100
[2021-02-13] MEDS: POTASSIUM CHLORIDE 20 MEQ/15 ML UDCUP PO SCH ×2 (09:42→21:57)
[2021-02-13] MEDS: TAMSULOSIN 0.4 MG CAPSULE PO SCH ×2 (09:42→21:58)
[2021-02-13] MEDS: ENOXAPARIN 100 MG/ML SYRINGE SUBCUT SCH ×2 (09:42→21:58)
[2021-02-13] MEDS: LEVOFLOXACIN 500 MG TABLET PO SCH (09:42)
[2021-02-13] MEDS: ROSUVASTATIN 20 MG TABLET PO SCH (09:42)
[2021-02-13] MEDS: BRIMONIDINE/TIMOLOL OPH SOLN 5 ML BOTTLE BOTH EYES SCH ×2 (09:42→21:58)
[2021-02-13] MEDS: DOCUSATE SODIUM 100 MG/10 ML UDCUP PER TUBE SCH ×2 (09:42→21:57)
[2021-02-13] MEDS: OMEPRAZOLE ODT 20 MG TABLET PER TUBE SCH ×2 (09:42→21:59)
[2021-02-13] MEDS: METOCLOPRAMIDE 10 MG/2 ML VIAL IV SCH ×2 (12:00→17:36)
[2021-02-13] MEDS ORDERED: GLUCAGON 1 MG VIAL IM PRN (16:20)
[2021-02-13] MEDS ORDERED: DEXTROSE 50% 25 GM/50 ML VIAL IV PRN (16:20)
[2021-02-13] MEDS ORDERED: DEXTROSE 10% 1,000 ML IV PRN (17:00)
[2021-02-13] MEDS ORDERED: ZINC/COPPER/MANGANESE/SELENIUM 1 ML, MULTIVITAMIN INJ 10 ML in AMINO ACIDS/DEXT/LYTES 5... IV SCH (17:00)
[2021-02-13] MEDS: INSULIN REGULAR 100 UNIT/ML SUBCUT SCH (18:24)
[2021-02-13] MEDS: LATANOPROST 0.005% OPH SOLN 2.5 ML BOTTLE BOTH EYES SCH (21:58)
[2021-02-14] MEDS: METOCLOPRAMIDE 10 MG/2 ML VIAL IV SCH ×4 (00:07→18:41)
[2021-02-14] MEDS: INSULIN REGULAR 100 UNIT/ML SUBCUT SCH ×4 (00:08→18:52)
[2021-02-14] MEDS: METOPROLOL TARTRATE 5 MG/5 ML VIAL IV SCH ×4 (00:08→18:53)
[2021-02-14] MEDS: ALBUTEROL/IPRATROPIUM 3 ML NEB RESP TX SCH ×4 (00:24→19:05)
[2021-02-14] MEDS: DEXTROSE 5% NACL 0.9% 1,000 ML IV SCH ×2 (05:59→13:52)
[2021-02-14] MEDS: DOCUSATE SODIUM 100 MG/10 ML UDCUP PER TUBE SCH ×2 (10:21→21:05)
[2021-02-14] MEDS: OMEPRAZOLE ODT 20 MG TABLET PER TUBE SCH ×2 (10:22→21:05)
[2021-02-14] MEDS: TAMSULOSIN 0.4 MG CAPSULE PO SCH ×2 (10:22→21:05)
[2021-02-14] MEDS: ROSUVASTATIN 20 MG TABLET PO SCH (10:22)
[2021-02-14] MEDS: LEVOFLOXACIN 500 MG TABLET PO SCH (10:22)
[2021-02-14] MEDS: POTASSIUM CHLORIDE 20 MEQ/15 ML UDCUP PO SCH ×2 (10:22→21:05)
[2021-02-14] MEDS: ENOXAPARIN 100 MG/ML SYRINGE SUBCUT SCH ×2 (10:22→21:07)
[2021-02-14] MEDS: BRIMONIDINE/TIMOLOL OPH SOLN 5 ML BOTTLE BOTH EYES SCH ×2 (10:23→21:06)
[2021-02-14] MEDS: ZINC/COPPER/MANGANESE/SELENIUM 1 ML in AMINO ACIDS/DEXT/LYTES 5-15% 2,000 ML IV SCH ×2 (13:50→16:09)
[2021-02-14] MEDS: FAT EMULSION 20% 250 ML IV SCH (15:38)
[2021-02-14] MEDS: LATANOPROST 0.005% OPH SOLN 2.5 ML BOTTLE BOTH EYES SCH (21:06)
[2021-02-15] MEDS: METOCLOPRAMIDE 10 MG/2 ML VIAL IV SCH ×4 (00:58→18:52)
[2021-02-15] MEDS: METOPROLOL TARTRATE 5 MG/5 ML VIAL IV SCH ×4 (00:59→18:52)
[2021-02-15] MEDS: INSULIN REGULAR 100 UNIT/ML SUBCUT SCH ×4 (01:08→18:15)
[2021-02-15] MEDS: ALBUTEROL/IPRATROPIUM 3 ML NEB RESP TX SCH ×4 (01:21→19:30)
[2021-02-15] MEDS: DEXTROSE 5% NACL 0.9% 1,000 ML IV SCH ×3 (02:05→21:08)
[2021-02-15] MEDS: ROSUVASTATIN 20 MG TABLET PO SCH (10:00)
[2021-02-15] MEDS: TAMSULOSIN 0.4 MG CAPSULE PO SCH ×2 (10:00→21:32)
[2021-02-15] MEDS: OMEPRAZOLE ODT 20 MG TABLET PER TUBE SCH ×2 (10:00→21:31)
[2021-02-15] MEDS: LEVOFLOXACIN 500 MG TABLET PO SCH (10:00)
[2021-02-15] MEDS: DOCUSATE SODIUM 100 MG/10 ML UDCUP PER TUBE SCH ×2 (10:01→21:31)
[2021-02-15] MEDS: ENOXAPARIN 100 MG/ML SYRINGE SUBCUT SCH ×2 (10:01→21:31)
[2021-02-15] MEDS: POTASSIUM CHLORIDE 20 MEQ/15 ML UDCUP PO SCH ×2 (10:01→21:31)
[2021-02-15] MEDS: BRIMONIDINE/TIMOLOL OPH SOLN 5 ML BOTTLE BOTH EYES SCH ×2 (10:02→21:32)
[2021-02-15] MEDS: ZINC/COPPER/MANGANESE/SELENIUM 1 ML in AMINO ACIDS/DEXT/LYTES 5-15% 2,000 ML IV SCH ×2 (13:24→21:06)
[2021-02-15] MEDS: BISACODYL 5 MG TABLET PO SCH ×2 (13:50→21:32)
[2021-02-15] MEDS: FAT EMULSION 20% 250 ML IV SCH (14:01)
[2021-02-15] MEDS: LATANOPROST 0.005% OPH SOLN 2.5 ML BOTTLE BOTH EYES SCH (21:31)
[2021-02-16] MEDS: ALBUTEROL/IPRATROPIUM 3 ML NEB RESP TX SCH ×4 (00:25→20:04)
[2021-02-16] MEDS: METOCLOPRAMIDE 10 MG/2 ML VIAL IV SCH ×5 (00:57→23:58)
[2021-02-16] MEDS: METOPROLOL TARTRATE 5 MG/5 ML VIAL IV SCH ×5 (00:58→23:56)
[2021-02-16] MEDS: INSULIN REGULAR 100 UNIT/ML SUBCUT SCH ×5 (00:59→23:56)
[2021-02-16 05:04] LABS: Basophils % 0.4 % (0.0-0.8); Eosinophils # 0.2 10*3/uL (0.0-0.87); Eosinophils % 1.8 % (0.00-10.9); Hematocrit 25.7 VOL% (42.0-52.0); Immature Granulocytes % 8.2 %; Immature Granulocytes Absolute 0.69 #; Lymphocytes % 11.7 % (21.2-54.2); Mean Corpuscular HGB Conc 31.1 GM/DL (32-36); Mean Corpuscular Volume 85.7 FL (87-102); Mean Platelet Volume 12.3 FL (9.6-12.0); Monocytes % 8.2 % (1.7-12.7); NRBC # 0.02 10*3/uL; Neutrophils % 69.7 % (38.7-73.9); Red Cell Distribution Width 15.8 % (9.3-17.3); White Blood Count 8.4 T/CUMM (4-12)
[2021-02-16 05:08] LABS: Platelet Count 72 T/CUMM (130-400)
[2021-02-16 05:12] LABS: Calcium 7.9 MG/DL (8.5-10.1); Osmolality,Calculated 289.1 MOS/KG (273-304); Potassium 3.9 MMOL/L (3.5-5.1)
[2021-02-16 05:20] LABS: Band Neutrophils 2 % (0-10); Eosinophils 1 % (0-10); Hypochromasia 1+; Lymphocytes 7 % (20-55); Metamyelocytes 4 %; Myelocytes 2 %; Segmented Neutrophils 73 % (50-85); Total Cells Counted 100
[2021-02-16 05:21] LABS: Microcytosis 1+; Ovalocytes Few; Polychromasia Slight
[2021-02-16 05:22] LABS: Platelet Estimate Decreased
[2021-02-16] MEDS: DEXTROSE 5% NACL 0.9% 1,000 ML IV SCH (07:28)
[2021-02-16] MEDS: ENOXAPARIN 100 MG/ML SYRINGE SUBCUT SCH ×2 (09:50→21:44)
[2021-02-16] MEDS: DOCUSATE SODIUM 100 MG/10 ML UDCUP PER TUBE SCH ×2 (09:51→21:44)
[2021-02-16] MEDS: OMEPRAZOLE ODT 20 MG TABLET PER TUBE SCH ×2 (09:51→21:44)
[2021-02-16] MEDS: TAMSULOSIN 0.4 MG CAPSULE PO SCH ×2 (09:51→21:44)
[2021-02-16] MEDS: LEVOFLOXACIN 500 MG TABLET PO SCH (09:51)
[2021-02-16] MEDS: BISACODYL 5 MG TABLET PO SCH ×2 (09:51→21:44)
[2021-02-16] MEDS: ROSUVASTATIN 20 MG TABLET PO SCH (09:51)
[2021-02-16] MEDS: BRIMONIDINE/TIMOLOL OPH SOLN 5 ML BOTTLE BOTH EYES SCH ×2 (09:52→21:45)
[2021-02-16] MEDS: POTASSIUM CHLORIDE 20 MEQ/15 ML UDCUP PO SCH ×2 (09:52→21:44)
[2021-02-16] MEDS: FAT EMULSION 20% 250 ML IV SCH (14:34)
[2021-02-16] MEDS ORDERED: ZINC/COPPER/MANGANESE/SELENIUM 1 ML, MULTIVITAMIN INJ 10 ML in AMINO ACIDS/DEXT/LYTES 5... IV SCH (17:00)
[2021-02-16] MEDS: LATANOPROST 0.005% OPH SOLN 2.5 ML BOTTLE BOTH EYES SCH (21:45)
[2021-02-17] MEDS: ALBUTEROL/IPRATROPIUM 3 ML NEB RESP TX SCH ×2 (01:09→07:00)
[2021-02-17] MEDS: METOCLOPRAMIDE 10 MG/2 ML VIAL IV SCH ×2 (06:40→11:44)
[2021-02-17] MEDS: INSULIN REGULAR 100 UNIT/ML SUBCUT SCH ×2 (06:40→11:41)
[2021-02-17] MEDS: METOPROLOL TARTRATE 5 MG/5 ML VIAL IV SCH ×2 (06:43→11:44)
[2021-02-17 07:54] LABS: Basophils % 0.4 % (0.0-0.8); Eosinophils # 0.2 10*3/uL (0.0-0.87); Eosinophils % 2.5 % (0.00-10.9); Hemoglobin 7.6 GM/DL (14.0-18.0); Immature Granulocytes % 6.8 %; Immature Granulocytes Absolute 0.46 #; Lymphocytes # 0.9 10*3/uL (1.4-4.0); Lymphocytes % 12.8 % (21.2-54.2); Mean Corpuscular HGB Conc 29.2 GM/DL (32-36); Mean Corpuscular Volume 89.3 FL (87-102); Mean Platelet Volume 12.6 FL (9.6-12.0); Monocytes % 9.1 % (1.7-12.7); Neutrophils % 68.4 % (38.7-73.9); Platelet Count 63 T/CUMM (130-400); Red Blood Count 2.91 MC/CUMM (3.8-5.5); White Blood Count 6.7 T/CUMM (4-12)
[2021-02-17 08:10] LABS: Band Neutrophils 2 % (0-10); Eosinophils 3 % (0-10); Hypochromasia 1+; Lymphocytes 10 % (20-55); Microcytosis 1+; Platelet Estimate Decreased; Segmented Neutrophils 76 % (50-85); Total Cells Counted 100
[2021-02-17] MEDS: DOCUSATE SODIUM 100 MG/10 ML UDCUP PER TUBE SCH (08:49)
[2021-02-17] MEDS: POTASSIUM CHLORIDE 20 MEQ/15 ML UDCUP PO SCH (08:49)
[2021-02-17] MEDS: TAMSULOSIN 0.4 MG CAPSULE PO SCH (08:49)
[2021-02-17] MEDS: ROSUVASTATIN 20 MG TABLET PO SCH (08:49)
[2021-02-17] MEDS: BISACODYL 5 MG TABLET PO SCH (08:50)
[2021-02-17] MEDS: OMEPRAZOLE ODT 20 MG TABLET PER TUBE SCH (08:50)
[2021-02-17] MEDS: BRIMONIDINE/TIMOLOL OPH SOLN 5 ML BOTTLE BOTH EYES SCH (10:24)
[2021-02-17] MEDS: APIXABAN 5 MG TABLET PO SCH (10:24)
[2021-02-17 11:07] VITALS: BP 112/59
== END 2021-02-17 14:15 | DRG 469 ==
LOC: N.OR 05:15 → N.SDSINP 05:16 → N.3E 09:58 → N.ICU 02-04 18:58 → N.3E 02-06 12:39
PROVIDERS: ADMIT Orthopaedic Surgery; ATTEND Orthopaedic Surgery

== ENCOUNTER 2021-02-22 17:29 | Inpatient (IN) ==
[2021-02-22] MEDS ORDERED: MORPHINE 4 MG/1 ML VIAL IV ONE (17:41)
[2021-02-22] MEDS ORDERED: ONDANSETRON 4 MG/2 ML VIAL IV ONE (17:41)
[2021-02-22 18:19] LABS: Basophils % 0.5 % (0.0-0.8); Eosinophils # 0.1 10*3/uL (0.0-0.87); Hematocrit 31.6 VOL% (42.0-52.0); Hemoglobin 9.3 GM/DL (14.0-18.0); Immature Granulocytes Absolute 0.12 #; Lymphocytes # 0.7 10*3/uL (1.4-4.0); Lymphocytes % 11.1 % (21.2-54.2); Mean Corpuscular HGB Conc 29.4 GM/DL (32-36); Mean Corpuscular Volume 86.3 FL (87-102); Mean Platelet Volume 10.9 FL (9.6-12.0); Monocytes % 9.8 % (1.7-12.7); Neutrophils % 75.6 % (38.7-73.9); Platelet Count 195 T/CUMM (130-400); Red Blood Count 3.66 MC/CUMM (3.8-5.5); Red Cell Distribution Width 15.8 % (9.3-17.3); White Blood Count 6.1 T/CUMM (4-12)
[2021-02-22 18:27] LABS: INR 1.1; PT Patient Result 11.9 SECS (10.5-12.0)
[2021-02-22 18:40] LABS: Albumin 2.9 G/DL (3.4-5.0); Bilirubin,Total 0.8 MG/DL (0.2-1.0); Total Protein 7.8 G/DL (6.4-8.2)
[2021-02-22] MEDS ORDERED: VANCOMYCIN INJ 1,000 MG in SODIUM CHLORIDE 0.9% 250 ML IV STA (20:30)
[2021-02-22] MEDS ORDERED: PIPERACILLIN/TAZOBACTAM 3,375 MG in SODIUM CHLORIDE 0.9% 100 ML IV STA (20:30)
[2021-02-22] MEDS ORDERED: MORPHINE 4 MG/1 ML VIAL IV PRN (20:41)
[2021-02-22] MEDS ORDERED: BISACODYL 5 MG TABLET PO PRN (20:41)
[2021-02-22] MEDS ORDERED: NALOXONE 0.4 MG/ML VIAL IV PRN (20:41)
[2021-02-22] MEDS ORDERED: ONDANSETRON 4 MG/2 ML VIAL IV PRN (20:41)
[2021-02-22] MEDS ORDERED: SODIUM PHOSPHATE ENEMA 133 ML BOTTLE RECTAL PRN (20:41)
[2021-02-22] MEDS ORDERED: ACETAMINOPHEN 325 MG TABLET PO PRN (20:41)
[2021-02-22] MEDS: SODIUM CHLORIDE 0.9% 1,000 ML IV SCH (22:01)
[2021-02-22] MEDS: DOCUSATE SODIUM 100 MG CAPSULE PO SCH (22:01)
[2021-02-23] MEDS: PIPERACILLIN/TAZOBACTAM 3,375 MG in SODIUM CHLORIDE 0.9% 100 ML IV SCH ×3 (04:32→21:12)
[2021-02-23 06:44] LABS: Basophils % 0.4 % (0.0-0.8); Eosinophils # 0.1 10*3/uL (0.0-0.87); Hematocrit 28.3 VOL% (42.0-52.0); Hemoglobin 8.1 GM/DL (14.0-18.0); Immature Granulocytes % 1.3 %; Immature Granulocytes Absolute 0.06 #; Lymphocytes # 0.3 10*3/uL (1.4-4.0); Lymphocytes % 5.6 % (21.2-54.2); Mean Corpuscular HGB Conc 28.6 GM/DL (32-36); Mean Corpuscular Volume 89.3 FL (87-102); Mean Platelet Volume 10.2 FL (9.6-12.0); Monocytes % 6.9 % (1.7-12.7); Neutrophils % 83.8 % (38.7-73.9); Platelet Count 261 T/CUMM (130-400); Red Blood Count 3.17 MC/CUMM (3.8-5.5); Red Cell Distribution Width 15.9 % (9.3-17.3); White Blood Count 4.5 T/CUMM (4-12)
[2021-02-23 07:11] LABS: Albumin 2.6 G/DL (3.4-5.0); Bilirubin,Total 1.7 MG/DL (0.2-1.0); Calcium 8.6 MG/DL (8.5-10.1); Osmolality,Calculated 275.8 MOS/KG (273-304); Potassium 4.4 MMOL/L (3.5-5.1); Total Protein 6.8 G/DL (6.4-8.2)
[2021-02-23] MEDS ORDERED: BISACODYL 10 MG SUPP RECTAL PRN (07:56)
[2021-02-23] MEDS ORDERED: ALUMINUM/MAGNES/SIMETH MAX STR 30 ML UDCUP PO PRN (07:56)
[2021-02-23] MEDS ORDERED: ZALEPLON 5 MG CAPSULE PO PRN (07:56)
[2021-02-23] MEDS ORDERED: FLUTICASONE 50 MCG NASAL SPRAY 16 GM BOTTLE BOTH NARES PRN (07:56)
[2021-02-23] MEDS ORDERED: MAGNESIUM HYDROXIDE SUSP 30 ML UDCUP PO PRN (08:00)
[2021-02-23] MEDS ORDERED: POLYETHYLENE GLYCOL POWDER 17 GM PACK PO PRN (08:00)
[2021-02-23] MEDS ORDERED: traMADol 50 MG TABLET PO PRN (08:00)
[2021-02-23] MEDS ORDERED: MECLIZINE 25 MG TABLET PO PRN (08:00)
[2021-02-23] MEDS ORDERED: IPRATROPIUM 0.06% NASAL SPRAY 15 ML BOTTLE BOTH NARES PRN (08:00)
[2021-02-23] MEDS ORDERED: PANTOPRAZOLE 40 MG TABLET PO SCH (09:00)
[2021-02-23] MEDS: POTASSIUM CHLORIDE 20 MEQ TABLET PO SCH ×2 (09:03→21:12)
[2021-02-23] MEDS: carvediloL 3.125 MG TABLET PO SCH ×2 (09:03→21:13)
[2021-02-23] MEDS: ROSUVASTATIN 20 MG TABLET PO SCH (09:03)
[2021-02-23] MEDS: TAMSULOSIN 0.4 MG CAPSULE PO SCH ×2 (09:03→21:12)
[2021-02-23] MEDS: DOCUSATE SODIUM 100 MG CAPSULE PO SCH ×2 (09:03→21:12)
[2021-02-23] MEDS: APIXABAN 5 MG TABLET PO SCH ×2 (09:03→21:13)
[2021-02-23] MEDS: VANCOMYCIN INJ 1,500 MG in SODIUM CHLORIDE 0.9% 500 ML IV SCH (09:10)
[2021-02-23] MEDS: BRIMONIDINE/TIMOLOL OPH SOLN 5 ML BOTTLE BOTH EYES SCH ×2 (09:14→21:14)
[2021-02-23] MEDS: SODIUM CHLORIDE 0.9% 1,000 ML IV SCH ×2 (09:20→21:13)
[2021-02-23] MEDS: ALBUTEROL 2.5 MG/3 ML NEB RESP TX SCH ×2 (13:41→19:22)
[2021-02-23] MEDS ORDERED: LATANOPROST 0.005% OPH SOLN 2.5 ML BOTTLE BOTH EYES SCH (21:00)
[2021-02-23] MEDS: PANTOPRAZOLE 40 MG TABLET PO SCH (21:12)
[2021-02-24] MEDS: SODIUM CHLORIDE 0.9% 1,000 ML IV SCH (06:12)
[2021-02-24] MEDS: PIPERACILLIN/TAZOBACTAM 3,375 MG in SODIUM CHLORIDE 0.9% 100 ML IV SCH (06:12)
[2021-02-24] MEDS: ALBUTEROL 2.5 MG/3 ML NEB RESP TX SCH ×2 (06:56→12:46)
[2021-02-24] MEDS: ROSUVASTATIN 20 MG TABLET PO SCH (08:59)
[2021-02-24] MEDS: POTASSIUM CHLORIDE 20 MEQ TABLET PO SCH (08:59)
[2021-02-24] MEDS: PANTOPRAZOLE 40 MG TABLET PO SCH (08:59)
[2021-02-24] MEDS: DOCUSATE SODIUM 100 MG CAPSULE PO SCH (09:00)
[2021-02-24] MEDS: APIXABAN 5 MG TABLET PO SCH (09:00)
[2021-02-24] MEDS: BRIMONIDINE/TIMOLOL OPH SOLN 5 ML BOTTLE BOTH EYES SCH (09:00)
[2021-02-24] MEDS: TAMSULOSIN 0.4 MG CAPSULE PO SCH (09:00)
[2021-02-24] MEDS: carvediloL 3.125 MG TABLET PO SCH (09:00)
[2021-02-24] MEDS: VANCOMYCIN INJ 1,500 MG in SODIUM CHLORIDE 0.9% 500 ML IV SCH (10:14)
[2021-02-24 12:40] VITALS: BP 114/56
== END 2021-02-24 13:10 | disposition swing bed (61) | DRG 389 ==
LOC: EDBD → EDUNIT# → N.ED 17:29 → N.EDINP 20:41 → N.TELES 21:31
PROVIDERS: ADMIT Family Medicine; ATTEND Family Medicine